=== PATIENT | male | born 1970 | race Caucasian/White ===

== ENCOUNTER 2018-02-07 16:42 | Emergency (ER) | payer OTHER ==
[~2018-02-07] VITALS: Ht 182.9 cm; Wt 157.0 kg
[~2018-02-07 16:42] MED LIST: ATOR10TA82 PO; WARF2.5T8 PO
[2018-02-07 16:49] VITALS: TEMP 36.5; Ht 182.9 cm; Wt 157.0 kg
[2018-02-07] MEDS ORDERED: KETOROLAC TROMETHAMINE 30 MG/ML VIAL IV STA (16:58)
[2018-02-07] MEDS ORDERED: MoRPHine SULFATE 10 MG/ML CARP/VIAL IV STA ×2 (16:58→17:55)
[2018-02-07] MEDS ORDERED: METF-384 PO (17:12)
[2018-02-07] MEDS ORDERED: OPTIRAY 320 IV PRN (17:15)
[2018-02-07 17:17] LABS: BASO % 0.1 %; BASO ABS # 0.01 K/uL (0-0.2); EOS % 0.7 %; EOS ABS # 0.05 K/uL (0-0.5); HEMATOCRIT 44.6 % (42-52); HEMOGLOBIN 15.6 g/dL (14.0-18.0); IG# 0.02 K/uL (0.00-0.02); LYMPH % 21.8 %; LYMPH ABS # 1.65 K/uL (1.2-3.4); MEAN CELL VOLUME 99.8 fL (80-100); MEAN CORPUSCULAR HEMOGLOBIN 34.9 pg (25-34); MEAN PLATELET VOLUME 9.9 fL (7.4-10.4); MONO % 7.3 %; MONO ABS # 0.55 K/uL (0.11-0.59); NEUT % 69.8 %; PLATELET COUNT 107 K/uL (130-400); RED CELL DISTRIBUTION WIDTH CV 13.6 % (11.5-14.5); RED CELL DISTRIBUTION WIDTH SD 49.6 fL (36.4-46.3); WHITE BLOOD COUNT 7.58 K/uL (4.8-10.8)
[2018-02-07 17:26] LABS: INR 2.5 (0.9-1.1)
[2018-02-07 17:27] LABS: ISTAT CREATININE 0.5 mg/dl (0.6-1.3); ISTAT IONIZED CALCIUM 1.08 mmol/l (1.12-1.32)
[2018-02-07] MEDS ORDERED: CARV3.122 PO (17:34)
[2018-02-07] MEDS ORDERED: GLIM1TAB2 PO (17:34)
[2018-02-07] MEDS ORDERED: VNTHFA/IN INH (17:34)
[2018-02-07] MEDS ORDERED: WARF-246 PO (17:34)
[2018-02-07] MEDS ORDERED: ACET-1256 PO (17:34)
[2018-02-07] MEDS ORDERED: GABA-1219 PO (17:34)
[2018-02-07 17:35] LABS: ALBUMIN 2.7 gm/dl (3.4-5.0); CALCIUM 8.5 mg/dl (8.5-10.1); CREATININE 0.79 mg/dl (0.60-1.40)
[2018-02-07 17:37] LABS: TOTAL PROTEIN 7.9 gm/dl (6.4-8.2)
[2018-02-07] MEDS ORDERED: NovoLIN-R INSULIN PER UNIT CHARGE IV STA (17:58)
--- NOTE | 2018-02-07 17:58 | DIAGNOSTIC IMAGING REPORT ---
CT ABD/PELVIS IV CONTRAST ONLY CLINICAL HISTORY: Right back/flank pain COMPARISON STUDY: None. TECHNIQUE: Following the IV administration of 94 mL of Optiray-320, CT scan of the abdomen and pelvis was performed from the lung bases to the proximal femurs. Images are reviewed in the axial, sagittal, and coronal planes. IV contrast was administered without complication. A dose lowering technique was utilized adhering to the principles of ALARA. CT DOSE: FINDINGS: Lower chest: The heart is normal in size and configuration, without pericardial effusion. The lung bases and pleural spaces are clear. Liver: There is hepatic steatosis. No focal masses are visualized. Gallbladder: Unremarkable. Spleen: The spleen is mildly enlarged measuring 13 cm Pancreas: Unremarkable. Adrenal glands: Unremarkable. Kidneys: There is symmetric renal cortical enhancement. The kidneys are normal in size without hydronephrosis. Bowel: There are no transition zones to indicate bowel obstruction. The appendix appears normal. There is no acute diverticulitis. Peritoneum: There is no intraperitoneal free air or abdominal ascites. There is a small fat-containing umbilical hernia Vasculature: The abdominal aorta is normal in course and caliber. There is indwelling IVC filter Adenopathy: Iliac chain lymph nodes are the upper limits of normal in size. Pelvic viscera: The bladder, and pelvic viscera are unremarkable. Skeletal structures: No destructive osseous lesions are seen. IMPRESSION: 1. Hepatic steatosis 2. Mild splenomegaly 3. No evidence of bowel obstruction. No evidence of free air 4. No evidence of acute appendicitis. No evidence of acute diverticulitis. Electronically signed by: Joshua Tapia M.D. 02/07/2018 5:57 PM Dictated Date/Time: 02/07/2018 5:53 PM
--- NOTE | 2018-02-07 18:00 | DIAGNOSTIC IMAGING REPORT ---
CT LUMBAR SPINE WITHOUT CT DOSE: 2235.03 mGy.cm CLINICAL HISTORY: Low back pain TECHNIQUE: Helical images were acquired in transverse plane. Reformatted sagittal and coronal images were reviewed. A dose lowering technique was utilized adhering to the principles of ALARA. CONTRAST: No contrast was administered COMPARISON STUDY: None. FINDINGS: L1-2 level: There is no evidence of significant disc bulge or focal herniation. There is no evidence of spinal or foraminal stenosis. L2-3 level: There is no evidence of significant disc bulge or focal herniation. There is no evidence of spinal or foraminal stenosis. L3-4 level: There is no evidence of significant disc bulge or focal herniation. There is no evidence of spinal or foraminal stenosis. L4-5 level: There is no evidence of significant disc bulge or focal herniation. There is no evidence of spinal or foraminal stenosis. L5-S1 level: There is no evidence of significant disc bulge or focal herniation. There is no evidence of spinal or foraminal stenosis. No fractures or subluxations are visualized. IMPRESSION: Unremarkable CT scan of the lumbar spine. Electronically signed by: Joshua Tapia M.D. 02/07/2018 5:59 PM Dictated Date/Time: 02/07/2018 5:57 PM
[2018-02-07] MEDS ORDERED: MoRPHine SULFATE 4 MG/ML 1 ML CARP\\VIAL ONE (19:23)
[2018-02-07] MEDS ORDERED: NURSING VERBAL MED ORDER ONE (19:30)
[2018-02-07] MEDS ORDERED: OXYCODONE IR HOME PACK PO ONE (19:45)
[2018-02-07 19:51] VITALS: BP 136/81; PULSE 80; O2SAT 98
--- NOTE | 2018-02-07 21:27 | EMERGENCY ROOM VISIT NOTE ---
History Report prepared by Sabine: Luna Nichole Under the Supervision of: Dr. Jasvir Fitzpatrick D.O. First contact with patient: 16:51 Chief Complaint: BACK PAIN Stated Complaint: BAD PAIN IN LOWER RT BACK History of Present Illness The patient is a 47 year old male who presents to the Emergency Room with complaints of persistent back pain for two days. He describes the pain as throbbing. He currently rates his pain a 6/10 in severity. He notes that lying down worsens his pain. Twisting turning and bending makes the pain worse. It radiates along his right lower back to his right flank. No exacerbating or remitting factors. He notes his pain is also worsened when he moves his left knee out to the side. He reports left hip pain for two years. He notes his pain initiates in his left groin and radiates to his left hip and his back. He notes the back pain is new relative to the groin and hip pain that has been ongoing for two years. He follows up with an orthopedic doctor in [place]. He was diagnosed with a left necrotic hip and was expected to have surgery, though he has a blood clotting disorder. One week prior to surgery he developed a PE. He has since been on Coumadin and has an IVC filter. He never received the surgery due to the clotting disorder. He has been non-weight bearing since his PE. Per , the patient's Coumadin levels have been lower than normal for about a month and a half. His last MRI was May 2017 at [facility]. Pt denies headache , change in vision, fevers, chest pain, cough, runny nose, nausea, vomiting, diarrhea, or pain with urination. He denies any numbness or weakness in the legs. Able to urinate and move his bowels without difficulty. Source of History: patient Onset: two days Position: back Symptom Intensity: 6/10 Timing: other (persistent) Modifying Factors (Worsening): breathing, other (lying down and rotating his left hip outward) Associated Symptoms: No fevers, No headache, No cough, No chest pain, No nausea, No vomiting, No diarrhea, No urinary symptoms (pain with urination), No weakness, No numbness Note: He notes left groin and left hip pain. He denies any change in vision or runny nose. Review of Systems See HPI for pertinent positives & negatives. A total of 10 systems reviewed and were otherwise negative. Past Medical & Surgical Medical Problems: (1) Palpitations (2) Shoulder pain, right Family History Diabetes mellitus Heart disease Social History Smoking Status: Current Every Day Smoker Alcohol Use: occasionally Drug Use: none Marital Status: Housing Status: lives with family Occupation Status: employed Current/Historical Medications Scheduled Carvedilol (Coreg), 3.125 MG PO BID Gabapentin (Gabapentin), 300 MG PO TID Glimepiride (Glimepiride), 1 MG PO DAILY Metformin Hcl (Glucophage), 1,000 MG PO BID Warfarin Sodium (Warfarin Sodium), 2.5 MG PO DAILY Scheduled PRN Acetaminophen (Tylenol), 1,000 MG PO Q6H PRN for Pain or Fever Albuterol Hfa (Ventolin Hfa), 2 PUFFS INH Q4-6HRS PRN for Shortness of Breath Allergies Coded Allergies: No Known Allergies (Unverified , 11/21/15) Physical Exam Vital Signs Date Time Temp Pulse Resp B/P (MAP) Pulse Ox O2 Delivery O2 Flow Rate FiO2 02/07/18 19:51 80 16 136/81 98 02/07/18 18:04 77 16 171/113 97 Room Air 02/07/18 16:49 36.5 95 20 166/123 97 Room Air Physical Exam GENERAL: Sitting up in bed, alert, well appearing, well nourished, no distress, non-toxic. Obese. EYE EXAM: normal conjunctiva. OROPHARYNX: no exudate, no erythema, lips, buccal mucosa, and tongue normal and mucous membranes are moist NECK: supple, no nuchal rigidity, no adenopathy, non-tender LUNGS: Clear to auscultation. Normal chest wall mechanics HEART: no murmurs, S1 normal and S2 normal ABDOMEN: abdomen soft, non-tender, normo-active bowel sounds, no masses, no rebound or guarding. BACK: Acute reproducible tenderness in right lower lumbar paraspinal region tracking out to left flank. SKIN: no rashes and no bruising UPPER EXTREMITIES: upper extremities are grossly normal. LOWER EXTREMITIES: Faint pitting edema in bilateral. Flexion and extension of hip, knee, ankle, and EHL 5/5 bilaterally. Gross sensations intact. NEURO EXAM: Normal sensorium, cranial nerves II-XII grossly intact, normal speech, no weakness of arms. Medical Decision & Procedures ER Provider Diagnostic Interpretation: Radiology results as stated below per my review and the radiologist's interpretation: CT ABD/PELVIS IV CONTRAST ONLY CLINICAL HISTORY: Right back/flank pain COMPARISON STUDY: None. TECHNIQUE: Following the IV administration of 94 mL of Optiray-320, CT scan of the abdomen and pelvis was performed from the lung bases to the proximal femurs. Images are reviewed in the axial, sagittal, and coronal planes. IV contrast was administered without complication. A dose lowering technique was utilized adhering to the principles of ALARA. CT DOSE: FINDINGS: Lower chest: The heart is normal in size and configuration, without pericardial effusion. The lung bases and pleural spaces are clear. Liver: There is hepatic steatosis. No focal masses are visualized. Gallbladder: Unremarkable. Spleen: The spleen is mildly enlarged measuring 13 cm Pancreas: Unremarkable. Adrenal glands: Unremarkable. Kidneys: There is symmetric renal cortical enhancement. The kidneys are normal in size without hydronephrosis. Bowel: There are no transition zones to indicate bowel obstruction. The appendix appears normal. There is no acute diverticulitis. Peritoneum: There is no intraperitoneal free air or abdominal ascites. There is a small fat-containing umbilical hernia Vasculature: The abdominal aorta is normal in course and caliber. There is indwelling IVC filter Adenopathy: Iliac chain lymph nodes are the upper limits of normal in size. Pelvic viscera: The bladder, and pelvic viscera are unremarkable. Skeletal structures: No destructive osseous lesions are seen. IMPRESSION: 1. Hepatic steatosis 2. Mild splenomegaly 3. No evidence of bowel obstruction. No evidence of free air 4. No evidence of acute appendicitis. No evidence of acute diverticulitis. Electronically signed by: Joshua Tapia M.D. 02/07/2018 5:57 PM Dictated Date/Time: 02/07/2018 5:[address] LUMBAR SPINE WITHOUT CT DOSE: 2235.03 mGy.cm CLINICAL HISTORY: Low back pain TECHNIQUE: Helical images were acquired in transverse plane. Reformatted sagittal and coronal images were reviewed. A dose lowering technique was utilized adhering to the principles of ALARA. CONTRAST: No contrast was administered COMPARISON STUDY: None. FINDINGS: L1-2 level: There is no evidence of significant disc bulge or focal herniation. There is no evidence of spinal or foraminal stenosis. L2-3 level: There is no evidence of significant disc bulge or focal herniation. There is no evidence of spinal or foraminal stenosis. L3-4 level: There is no evidence of significant disc bulge or focal herniation. There is no evidence of spinal or foraminal stenosis. L4-5 level: There is no evidence of significant disc bulge or focal herniation. There is no evidence of spinal or foraminal stenosis. L5-S1 level: There is no evidence of significant disc bulge or focal herniation. There is no evidence of spinal or foraminal stenosis. No fractures or subluxations are visualized. IMPRESSION: Unremarkable CT scan of the lumbar spine. Electronically signed by: Joshua Tapia M.D. 02/07/2018 5:59 PM Dictated Date/Time: 02/07/2018 5:57 PM Laboratory Results 02/07/18 17:08 Red Blood Count 4.47, Mean Corpuscular Volume 99.8, Mean Corpuscular Hemoglobin 34.9, Mean Corpuscular Hemoglobin Concent 35.0, Mean Platelet Volume 9.9, Neutrophils (%) (Auto) 69.8, Lymphocytes (%) (Auto) 21.8, Monocytes (%) (Auto) 7.3, Eosinophils (%) (Auto) 0.7, Basophils (%) (Auto) 0.1, Neutrophils # (Auto) 5.30, Lymphocytes # (Auto) 1.65, Monocytes # (Auto) 0.55, Eosinophils # (Auto) 0.05, Basophils # (Auto) 0.01 02/07/18 17:08 Test 02/07/18 17:08 02/07/18 17:13 02/07/18 18:35 White Blood Count 7.58 K/uL (4.8-10.8) Red Blood Count 4.47 M/uL (4.7-6.1) Hemoglobin 15.6 g/dL (14.0-18.0) Hematocrit 44.6 % (42-52) Mean Corpuscular Volume 99.8 fL (80-100) Mean Corpuscular Hemoglobin 34.9 pg (25-34) Mean Corpuscular Hemoglobin Concent 35.0 g/dl (32-36) Platelet Count 107 K/uL (130-400) Mean Platelet Volume 9.9 fL (7.4-10.4) Neutrophils (%) (Auto) 69.8 % Lymphocytes (%) (Auto) 21.8 % Monocytes (%) (Auto) 7.3 % Eosinophils (%) (Auto) 0.7 % Basophils (%) (Auto) 0.1 % Neutrophils # (Auto) 5.30 K/uL (1.4-6.5) Lymphocytes # (Auto) 1.65 K/uL (1.2-3.4) Monocytes # (Auto) 0.55 K/uL (0.11-0.59) Eosinophils # (Auto) 0.05 K/uL (0-0.5) Basophils # (Auto) 0.01 K/uL (0-0.2) RDW Standard Deviation 49.6 fL (36.4-46.3) RDW Coefficient of Variation 13.6 % (11.5-14.5) Immature Granulocyte % (Auto) 0.3 % Immature Granulocyte # (Auto) 0.02 K/uL (0.00-0.02) Prothrombin Time 26.1 SECONDS (9.0-12.0) Prothromb Time International Ratio 2.5 (0.9-1.1) Est Creatinine Clear Calc Drug Dose 182.7 ml/min Estimated GFR () 125.7 Estimated GFR (Non- 108.4 BUN/Creatinine Ratio 6.4 (10-20) Calcium Level 8.5 mg/dl (8.5-10.1) Total Bilirubin 0.9 mg/dl (0.2-1) Direct Bilirubin 0.3 mg/dl (0-0.2) Aspartate Amino Transf (AST/SGOT) 71 U/L (15-37) Alanine Aminotransferase (ALT/SGPT) 29 U/L (12-78) Alkaline Phosphatase 155 U/L (45-117) Total Protein 7.9 gm/dl (6.4-8.2) Albumin 2.7 gm/dl (3.4-5.0) Lipase 122 U/L (73-393) Beta-Hydroxybutyric Acid 0.55 mg/dL (0.2-2.81) Bedside Hemoglobin 16.3 g/dl (14.0-18.0) Bedside Hematocrit 48 % (42-52) Bedside Sodium 137 mEq/L (135-144) Bedside Potassium 4.0 mEq/L (3.3-5.0) Bedside Chloride 96 mEq/L (101-112) Bedside Total CO2 27 mEq/l (24-31) Anion Gap 19.0 mmol/L (16-25) Bedside Blood Urea Nitrogen 4 mg/dl (7-18) Bedside Creatinine 0.5 mg/dl (0.6-1.3) Bedside Glucose (other) 347 mg/dl (70-99) Bedside Ionized Calcium (Nirmala) 1.08 mmol/l (1.12-1.32) Urine Color YELLOW Urine Appearance CLEAR (CLEAR) Urine pH 6.5 (4.5-7.5) Urine Specific [place] > 1.045 (1.000-1.030) Urine Protein NEG (NEG) Urine Glucose (UA) 3+ (NEG) Urine Ketones TRACE (NEG) Urine Occult Blood NEG (NEG) Urine Nitrite NEG (NEG) Urine Bilirubin NEG (NEG) Urine Urobilinogen NEG (NEG) Urine Leukocyte Esterase NEG (NEG) Urine WBC (Auto) 0 /hpf (0-5) Urine RBC (Auto) 0-4 /hpf (0-4) Urine Hyaline Casts (Auto) 0 /lpf (0-5) Urine Epithelial Cells (Auto) 5-10 /lpf (0-5) Urine Bacteria (Auto) NEG (NEG) Laboratory results per my review. Medications Administered Medications (Trade) Dose Ordered Sig/Fito Route Start Time Stop Time Status Last Admin Dose Admin Morphine Sulfate (MoRPHine SULFATE INJ) 6 mg NOW STAT IV 02/07/18 16:58 02/07/18 17:00 DC 02/07/18 17:09 6 MG Ketorolac Tromethamine (Toradol Inj) 30 mg NOW STAT IV 02/07/18 16:58 02/07/18 17:00 DC 02/07/18 17:09 30 MG Morphine Sulfate (MoRPHine SULFATE INJ) 6 mg NOW STAT IV 02/07/18 17:55 02/07/18 17:57 DC 02/07/18 18:10 6 MG Insulin Human Regular (novoLIN-R U-100 PER UNIT) 3 units NOW STAT IV 02/07/18 17:58 02/07/18 17:59 DC 02/07/18 18:29 3 UNITS Morphine Sulfate (MoRPHine SULFATE INJ) 4 mg STK-MED ONCE .ROUTE 02/07/18 19:23 02/07/18 19:24 DC 02/07/18 19:25 4 MG ED Course ED COURSE: Vital signs were reviewed and showed hypertensive. The patients medical record was reviewed The above diagnostic studies were performed and reviewed. ED treatments and interventions as stated above. 1651: The patient was evaluated in room A10. A complete history and physical examination was performed. 1657: Ordered Toradol 30 mg IV and Morphine Sulfate 6 mg IV 1754: Ordered Morphine Sulfate 6 mg IV 1757: Ordered Insulin Human Regular 3 units IV 1815: I reassessed the patient at this time. I updated the patient. 1922: Ordered Morphine Sulfate 4 mg IV 1941: Upon reevaluation, the patient is feeling better. I discussed my findings with the patient and he understands and agrees with the treatment plan. Based on the patients age, coexisting illnesses, exam and lab findings the decision to treat as an outpatient was made. The patient remained stable while under my care. The patient appeared well at the time of discharge. 1944: Ordered Oxycodone HCl 1 homepack PO Medical Decision Differential diagnoses includes but is not limited to lumbar radiculopathy, muscle strain, facture, cauda equina, mass, and disc herniation. Patient is a 47-year-old male who presents the ER for right lower back/flank pain which started 2 days ago. He complains of chronic left hip and groin pain which has been unchanged for the past several years. He has followed up with orthopedics for this. Right lower back is new. Patient is neurologically intact. CBC along with BMP and bilirubin was unremarkable. AST slightly elevated. Lipase normal. No gap. BSG was slightly elevated at 347. Patient was given 3 units of IV insulin. CT of the abdomen and pelvis was unremarkable along with CT lumbar spine. He was asymptomatic as he was observed for over an hour which is the duration of the IV insulin. INR was elevated at 2.5. UA was unremarkable. Patient was discharged with a small bottle of OxyIR. He was instructed to follow-up with his PCP and orthopedic doctor. He will need to follow-up for his elevated BSG and his pain. Updated patient and family at bedside. Discussed with Pt concerning signs and symptoms to watch out for. Pt was instructed to follow up with their PCP and discussed with the patient their option to return to the ED at anytime for persistent or worsening symptoms. The appropriate anticipatory guidance and out-patient management, including indications for return to the emergency department, were explained at length to the patient and understood. Medication Reconcilliation Current Medication List: was personally reviewed by me Blood Pressure Screening Patient's blood pressure: Elevated blood pressure Blood pressure disposition: Elevated BP felt to be situational Impression Primary Impression: Back pain Additional Impression: Hyperglycemia Scribe Attestation The scribe's documentation has been prepared under my direction and personally reviewed by me in its entirety. I confirm that the note above accurately reflects all work, treatment, procedures, and medical decision making performed by me. Departure Information Dispostion Home / Self-Care Referrals No Doctor, Assigned (PCP) Elmer Herrera M.D. Forms HOME CARE DOCUMENTATION FORM, IMPORTANT VISIT INFORMATION Patient Instructions Back Pain - [facility], My [facility] Additional Instructions Please follow up with your primary care doctor with in the next 24 hours. Any worsening of your symptoms, please return to the ED immediately. This includes any fevers greater than 100.4, worsening pain, chest pain, shortness breath, persistent nausea, vomiting, unable to eat or drink, or any other concerning signs or symptoms from your standpoint. You were given medications during this visit that will inhibit your ability to drive, operate machinery and work. Please do NOT drive, operate machinery, drink alcohol or work for the next 12hrs. Please take Tylenol or Motrin as needed for pain. Please follow-up with your PCP in regards to her elevated blood sugars. Problem Qualifiers Primary Impression: Back pain Back pain location: low back pain Chronicity: acute Back pain laterality: right Sciatica presence: without sciatica Qualified Codes: M54.5 - Low back pain
== END 2018-02-07 19:51 | disposition home or self-care (01) ==
LOC: C.EDB 16:43 → C.EDA 19:51
DX: M54.5 Low back pain (principal); R73.9 Hyperglycemia, unspecified; M87.352 Other secondary osteonecrosis, left femur; D68.9 Coagulation defect, unspecified; Z86.711 Personal history of pulmonary embolism; F17.200 Nicotine dependence, unspecified, uncomplicated; Z79.01 Long term (current) use of anticoagulants; Z79.84 Long term (current) use of oral hypoglycemic drugs; Z83.3 Family history of diabetes mellitus; Z82.49 Family history of ischemic heart disease and other diseases of the circulatory system

== ENCOUNTER 2020-08-31 18:32 | Inpatient (IN) ==
--- OUTSIDE RECORDS SUMMARY | 2020-08-31 18:35 | External Medical Summary | Continuity of Care Document ---
:1970 Author Name Ashlee Isaac Address Unavailable Unavailable , Care Team Providers Name Role Phone NonMNPG M.D. Unavailable [email or web address] [email or web address], [email or web address] Unavailable Unavailable Problems Active medical history not documented Allergies and Adverse Reactions Allergy history not documented Medications Medications not documented Procedures Procedures not documented Immunizations Immunizations not documented Plan of Treatment Planned Observations Planned Goals not documented Results No Known Results Results not documented
--- OUTSIDE RECORDS SUMMARY | 2020-08-31 18:35 | External Medical Summary | Continuity of Care Document ---
:1970 Author Name Ashlee Isaac Address Unavailable Unavailable , Care Team Providers Name Role Phone NonMNPG M.D. Unavailable [email or web address] PCP, UNKNOWN Unavailable Unavailable Problems Active medical history not documented Allergies and Adverse Reactions Allergy history not documented Medications Medications not documented Procedures Procedures not documented Immunizations Immunizations not documented Plan of Treatment Planned Observations Planned Goals not documented Results No Known Results Results not documented
[2020-08-31] MEDS ORDERED: MULTI-VITAMIN INFUSION 10 ML, THIAMINE HCL 100 MG, FOLIC ACID 1 MG in SODIUM CHLORIDE 0... IV ONE (19:00)
--- NOTE | 2020-08-31 19:05 | Emergency Department Note ---
Impression & Plan Alcohol withdrawal syndrome, Thrombocytopenia, Subtherapeutic international normalized ratio (INR) ED Provider Note Provider: Peter Avalos MD DATE OF SERVICE:08/31/2020 CHIEF COMPLAINT: Alcohol withdrawal, lab abnormalities HISTORY OF PRESENT ILLNESS: Patient is a 49-year-old gentleman with a history of hypertension, DVT, PE on Coumadin, coagulation abnormality, dyslipidemia, left hip replacement, and alcohol abuse presenting here today with concerns for alcohol withdrawal developing and laboratory abnormalities. Patient states that he has a long history of alcohol abuse normally between 10 and 20 beers a day. Last drink approximately 1 AM early this morning. Patient states he is not had hallucinations or seizures before but has had some mild to moderate withdrawal symptoms. Patient stated not stop drinking. Patient has been following with outpatient providers for various things. A significant medical history on Coumadin for coagulopathy and his INR was recently low. States he is had some small falls and bumps and has some small resolving contusions on his right chest and upper abdomen but denies any significant pain here. Denies falling and striking his head. Patient states he felt a bit warm and flushed earlier but denies any again hallucinations or seizure-like activity. Patient states he has had some stiffness around his left hip that he had previously replaced back in December due to necrosis he reports. Patient denies IV drug use or history of a bit headaches. Patient denies a history of inpatient rehab. Patient states he talked to his [facility] doctors today who reviewed his blood work and referred him here for likely inpatient detox. Patient is willing for inpatient detox. Patient denies taking any Librium or benzodiazepines today. Patient states he recently saw neurology yesterday due to chronic gait abnormality issues. Patient reports there told his platelets, ammonia level, and INR were off today. REVIEW OF SYSTEMS: A total of 10 review of systems was obtained and negative except as stated above in the HPI. PAST MEDICAL HISTORY: As noted above MEDICATIONS: Reviewed medication list. SOCIAL HISTORY: History of alcohol abuse, smokes marijuana, denies other IV drug use or other illicit drug use PHYSICAL EXAM: GENERAL: alert and oriented in no acute distress on stretcher Head: normocephalic and atraumatic EYES: No injection, discharge or icterus. PERRL NECK: Trachea midline. Supple. ENT: Mucous membranes pink and moist. LUNGS: Airway patent. No retractions. Breath sounds clear with good air entry bilaterally. HEART: Regular rate and rhythm. No chest wall tenderness although there is a almost fully healed 4 cm area of contusion on the right lower chest. No crepitus. ABDOMEN: Soft and non-tender, without guarding or rebound. There is a approximately 6 mm area of contusion in the epigastrium without significant tenderness. SKIN: Acyanotic, warm, dry, without rashes EXTREMITIES: Without swelling, tenderness or deformity NEUROLOGICAL: No focal deficits. No aphasia. No facial droop or slurred speech. Normal strength and tone in the extremities. Sensation to gross touch normal in the extremities EKG: Normal sinus rhythm with occasional PAC rate of 66 bpm. No PVC. No acute ST segment elevation or depression. QTC 427. Normal QRS. CONTINUOUS CARDIAC MONITORING: was ordered and showed a heart rate of 74 bpm in normal sinus rhythm GCS 15. Patient's laboratory studies and imaging reviewed. Differential includes Infection, dehydration, metabolic abnormality, hypo/hyperglycemia, electrolyte disturbance, anemia, hypoxia, cardiac sources, intracerebral event, toxicologic, neurologic, as well as other pathologies. IMPRESSION/MEDICAL DECISION MAKING: Patient presents concern for alcohol withdrawal. Medically does not have significant history of delirium tremens/seizures per report. Significant occult history. History of liver issues and anticoagulated to history of VTE and coagulopathy. Patient is now with some easy bruising noted and wishing to detox from alcohol. Not in walker withdrawal at this point. Repeat laboratories were sent today. Imaging of the head was completed given that he is had some fall and anticoagulated well as CT the abdomen pelvis. No significant abdominal tenderness and I doubt any acute significant traumatic injury. No significant focal deficits or asterisks appreciated. Does not seem significant confused I doubt hepatic encephalopathy. Hepatitis panel was ordered. Denies IV drug abuse. Does some concerns about ability to detox at home given his significant alcohol history. Does have history of liver dysfunction and the thrombocytopenia today seems consistent with that. No significant transaminitis. Minimal anemia. INR is subtherapeutic however given the thrombocytopenia and his already increased dose of warfarin will defer any furth er acute anticoagulation at this point to the hospitalist team. Ammonia just above normal and does not appear to be again suffering from hepatic encephalopathy. States he has many bowel movements at home and does not use the lactulose but does use the rifaximin. Alcohol is undetectable. Negative hepatitis B antigen and hepatitis C antibody. No signs of urine infection. TSH within normal limits. Reevaluated the patient who is feeling a bit anxious and somewhat tremulous. Hypertensive but not that significantly tachycardic. Not having loose Nations. Discussed with him options of trying oral outpatient treatment plan with Librium. Patient had significant concerns with this. Discussed with his and his sister per his request via phone. Patient states he does not think he can do this and does not believe that he is safe to go home at this point and that he would relapse or have severe withdrawal. Discussed with option of further observation here in the hospital. He is in agreement with this and the hospitalist was contacted. Given some IV Valium with improvement of his anxiety. Did receive IV folate and thiamine. DIAGNOSIS: Alcohol withdrawal, thrombocytopenia DISPOSITION: Hospitalist will evaluate Patient was agreeable with this plan. Past Med/Surg History Social History Smoking Status: Current every day smoker Hx Substance Use: No Feels Safe at Home: Yes Allergies Allergies Allergy/AdvReac Type Severity Reaction Status Date / Time No Known Allergies Allergy Unverified 08/31/20 22:29 Home Meds Home Medications Medication Instructions Recorded Confirmed acyclovir 200 mg PO UD 08/31/20 08/31/20 carvedilol [Coreg] 3.125 mg PO BID 08/31/20 08/31/20 chlordiazepoxide HCl 25 mg PO Q4 PRN 08/31/20 08/31/20 cholecalciferol (vitamin D3) 125 mcg PO DAILY 08/31/20 08/31/20 [Vitamin D3] citalopram 20 mg PO DAILY 08/31/20 08/31/20 cyanocobalamin (vitamin B-12) 0 mcg PO DAILY 08/31/20 08/31/20 [Vitamin B-12] folic acid 1 mg PO DAILY 08/31/20 08/31/20 hydroxyzine HCl 10 mg PO DAILY PRN 08/31/20 08/31/20 metformin 1,000 mg PO BID 08/31/20 08/31/20 pantoprazole 40 mg PO DAILY 08/31/20 08/31/20 pregabalin 75 mg PO BID 08/31/20 08/31/20 rifaximin [Xifaxan] 550 mg PO BID 08/31/20 08/31/20 thiamine HCl (vitamin B1) [Vitamin 100 mg PO DAILY 08/31/20 08/31/20 B-1] trazodone 50 mg PO HS PRN 08/31/20 08/31/20 warfarin 2 mg PO DAILY 08/31/20 08/31/20 Results & Data (ED) Vital Signs Vital Signs - 24 hr 08/31/20 18:37 08/31/20 18:59 08/31/20 19:25 Temperature 36.8 C Temperature Source Oral Pulse Rate 69 59 L 61 Pulse Rate [Right Finger] Pulse Rate from SpO2 Sensor 60 63 Respiratory Rate 18 22 23 Respiratory Depth Normal Blood Pressure 172/84 H 142/89 H 152/90 H Blood Pressure [Left Arm] Blood Pressure Mean 113 108 123 Blood Pressure Mean [Left Arm] Blood Pressure Position Sitting Blood Pressure Position [Left Arm] Pulse Oximetry 96 96 98 Oxygen Delivery Method Room Air Room Air Room Air Sepsis Recent Fever Within 48 Hours No Sepsis New/Unexplained Change in Mental Status No Sepsis Action Taken by Nursing No Action Required 08/31/20 19:30 08/31/20 20:17 08/31/20 21:00 Temperature Temperature Source Pulse Rate 63 61 Pulse Rate [Right Finger] 60 Pulse Rate from SpO2 Sensor 65 62 Respiratory Rate 17 20 22 Respiratory Depth Blood Pressure 140/79 131/80 Blood Pressure [Left Arm] 168/95 H Blood Pressure Mean 96 86 Blood Pressure Mean [Left Arm] 119 Blood Pressure Position Blood Pressure Position [Left Arm] Sitting Pulse Oximetry 98 98 97 Oxygen Delivery Method Room Air Room Air Room Air Sepsis Recent Fever Within 48 Hours Sepsis New/Unexplained Change in Mental Status Sepsis Action Taken by Nursing 08/31/20 21:17 08/31/20 21:30 08/31/20 22:00 Temperature Temperature Source Pulse Rate 64 67 58 L Pulse Rate [Right Finger] Pulse Rate from SpO2 Sensor 64 64 62 Respiratory Rate 21 17 24 Respiratory Depth Blood Pressure 149/93 H 153/91 H 134/79 Blood Pressure [Left Arm] Blood Pressure Mean 108 106 88 Blood Pressure Mean [Left Arm] Blood Pressure Position Blood Pressure Position [Left Arm] Pulse Oximetry 98 98 96 Oxygen Delivery Method Room Air Room Air Room Air Sepsis Recent Fever Within 48 Hours Sepsis New/Unexplained Change in Mental Status Sepsis Action Taken by Nursing 08/31/20 22:30 08/31/20 23:00 08/31/20 23:30 Temperature Temperature Source Pulse Rate 64 55 L 75 Pulse Rate [Right Finger] Pulse Rate from SpO2 Sensor 62 55 L 62 Respiratory Rate 15 18 20 Respiratory Depth Blood Pressure 154/93 H 158/90 H 168/98 H Blood Pressure [Left Arm] Blood Pressure Mean 111 100 110 Blood Pressure Mean [Left Arm] Blood Pressure Position Blood Pressure Position [Left Arm] Pulse Oximetry 98 98 97 Oxygen Delivery Method Room Air Room Air Room Air Sepsis Recent Fever Within 48 Hours Sepsis New/Unexplained Change in Mental Status Sepsis Action Taken by Nursing Laboratory Data Result diagrams: 08/31/20 19:15 08/31/20 19:15 Lab Results 08/31/20 08/31/20 08/31/20 Range/Units 19:15 19:15 19:15 WBC 5.00 (4.8-10.8) K/uL RBC 4.40 L (4.7-6.1) M/uL Hgb 13.5 L (14.0-18.0) g/dL Hct 40.6 L (42-52) % MCV 92.3 (80-100) fL MCH 30.7 (25-34) pg MCHC 33.3 (32-36) g/dL RDW Std Deviation 57.5 H (36.4-46.3) fL RDW Coeff of Pk 17.0 H (11.5-14.5) % Plt Count 68 L (130-400) K/uL MPV 10.3 (7.4-10.4) fL Immature Gran % (Auto) 0.4 % Neut % (Auto) 76.6 % Lymph % (Auto) 12.2 % [place] % (Auto) 9.0 % Eos % (Auto) 1.6 % Baso % (Auto) 0.2 % Neut # (Auto) 3.83 (1.4-6.5) K/uL Lymph # (Auto) 0.61 L (1.2-3.4) K/uL [place] # (Auto) 0.45 (0.11-0.59) K/uL Eos # (Auto) 0.08 (0-0.5) K/uL Baso # (Auto) 0.01 (0-0.2) K/uL Immature Gran # (Auto) 0.02 (0.00-0.02) K/uL Platelet Estimate Decreased L (Normal) PT 15.7 H (9.0-12.0) Seconds INR 1.5 H (0.9-1.1) Sodium 138 (136-145) mmol/L Potassium 3.8 (3.5-5.1) mmol/L Chloride 106 (98-107) mmol/L Carbon Dioxide 24 (21-32) mmol/L Anion Gap 8.0 (3-11) BUN 11 (7-18) mg/dl Creatinine 0.65 (0.6-1.4) mg/dl Est Cr Clr Drug Dosing Not Reportable Est GFR ( Amer) 134.3 Est GFR (Non-Af Amer) 115.9 BUN/Creatinine Ratio 16.2 (10-20) Glucose 201 H (70-99) mg/dl Calcium 8.7 (8.5-10.1) mg/dl Phosphorus 2.4 L (2.5-4.9) mg/dl Magnesium 1.8 (1.8-2.4) mg/dl Total Bilirubin 0.9 (0.2-1) mg/dl AST 34 (15-37) U/L ALT 24 (12-78) U/L Alkaline Phosphatase 113 (45-117) U/L Ammonia (11-32) umol/L Troponin I < 0.015 (0-0.045) ng/ml Total Protein 6.9 (6.4-8.2) gm/dl Albumin 3.0 L (3.4-5.0) gm/dl Globulin 3.9 (2.5-4.0) gm/dl Albumin/Globulin Ratio 0.8 L (0.9-2) TSH 0.850 (0.300-4.500) uIu/ml Urine Color Urine Appearance (Clear) Urine pH (4.5-7.5) Ur Specific [place] (1.000-1.030) Urine Protein (Negative) Urine Glucose (UA) (Negative) Urine Ketones (Negative) Urine Blood (Negative) Urine Nitrite (Negative) Urine Bilirubin (Negative) Urine Urobilinogen (Negative) Ur Leukocyte Esterase (Negative) Ethyl Alcohol mg/dL (0-3) mg/dl Hep Bs Antigen (Neg) Hepatitis C Antibody (Neg) 08/31/20 08/31/20 08/31/20 Range/Units 19:15 19:15 19:15 WBC (4.8-10.8) K/uL RBC (4.7-6.1) M/uL Hgb (14.0-18.0) g/dL Hct (42-52) % MCV (80-100) fL MCH (25-34) pg MCHC (32-36) g/dL RDW Std Deviation (36.4-46.3) fL RDW Coeff of Pk (11.5-14.5) % Plt Count (130-400) K/uL MPV (7.4-10.4) fL Immature Gran % (Auto) % Neut % (Auto) % Lymph % (Auto) % [place] % (Auto) % Eos % (Auto) % Baso % (Auto) % Neut # (Auto) (1.4-6.5) K/uL Lymph # (Auto) (1.2-3.4) K/uL [place] # (Auto) (0.11-0.59) K/uL Eos # (Auto) (0-0.5) K/uL Baso # (Auto) (0-0.2) K/uL Immature Gran # (Auto) (0.00-0.02) K/uL Platelet Estimate (Normal) PT (9.0-12.0) Seconds INR (0.9-1.1) Sodium (136-145) mmol/L Potassium (3.5-5.1) mmol/L Chloride (98-107) mmol/L Carbon Dioxide (21-32) mmol/L Anion Gap (3-11) BUN (7-18) mg/dl Creatinine (0.6-1.4) mg/dl Est Cr Clr Drug Dosing Est GFR ( Amer) Est GFR (Non-Af Amer) BUN/Creatinine Ratio (10-20) Glucose (70-99) mg/dl Calcium (8.5-10.1) mg/dl Phosphorus (2.5-4.9) mg/dl Magnesium (1.8-2.4) mg/dl Total Bilirubin (0.2-1) mg/dl AST (15-37) U/L ALT (12-78) U/L Alkaline Phosphatase (45-117) U/L Ammonia 34.5 H (11-32) umol/L Troponin I (0-0.045) ng/ml Total Protein (6.4-8.2) gm/dl Albumin (3.4-5.0) gm/dl Globulin (2.5-4.0) gm/dl Albumin/Globulin Ratio (0.9-2) TSH (0.300-4.500) uIu/ml Urine Color Urine Appearance (Clear) Urine pH (4.5-7.5) Ur Specific [place] (1.000-1.030) Urine Protein (Negative) Urine Glucose (UA) (Negative) Urine Ketones (Negative) Urine Blood (Negative) Urine Nitrite (Negative) Urine Bilirubin (Negative) Urine Urobilinogen (Negative) Ur Leukocyte Esterase (Negative) Ethyl Alcohol mg/dL < 3.0 (0-3) mg/dl Hep Bs Antigen Neg (Neg) Hepatitis C Antibody Neg (Neg) 08/31/20 Range/Units 20:35 WBC (4.8-10.8) K/uL RBC (4.7-6.1) M/uL Hgb (14.0-18.0) g/dL Hct (42-52) % MCV (80-100) fL MCH (25-34) pg MCHC (32-36) g/dL RDW Std Deviation (36.4-46.3) fL RDW Coeff of Pk (11.5-14.5) % Plt Count (130-400) K/uL MPV (7.4-10.4) fL Immature Gran % (Auto) % Neut % (Auto) % Lymph % (Auto) % [place] % (Auto) % Eos % (Auto) % Baso % (Auto) % Neut # (Auto) (1.4-6.5) K/uL Lymph # (Auto) (1.2-3.4) K/uL [place] # (Auto) (0.11-0.59) K/uL Eos # (Auto) (0-0.5) K/uL Baso # (Auto) (0-0.2) K/uL Immature Gran # (Auto) (0.00-0.02) K/uL Platelet Estimate (Normal) PT (9.0-12.0) Seconds INR (0.9-1.1) Sodium (136-145) mmol/L Potassium (3.5-5.1) mmol/L Chloride (98-107) mmol/L Carbon Dioxide (21-32) mmol/L Anion Gap (3-11) BUN (7-18) mg/dl Creatinine (0.6-1.4) mg/dl Est Cr Clr Drug Dosing Est GFR ( Amer) Est GFR (Non-Af Amer) BUN/Creatinine Ratio (10-20) Glucose (70-99) mg/dl Calcium (8.5-10.1) mg/dl Phosphorus (2.5-4.9) mg/dl Magnesium (1.8-2.4) mg/dl Total Bilirubin (0.2-1) mg/dl AST (15-37) U/L ALT (12-78) U/L Alkaline Phosphatase (45-117) U/L Ammonia (11-32) umol/L Troponin I (0-0.045) ng/ml Total Protein (6.4-8.2) gm/dl Albumin (3.4-5.0) gm/dl Globulin (2.5-4.0) gm/dl Albumin/Globulin Ratio (0.9-2) TSH (0.300-4.500) uIu/ml Urine Color Dark Yellow Urine Appearance Clear (Clear) Urine pH 7.0 (4.5-7.5) Ur Specific [place] 1.021 (1.000-1.030) Urine Protein Negative (Negative) Urine Glucose (UA) 2+ H (Negative) Urine Ketones Negative (Negative) Urine Blood Negative (Negative) Urine Nitrite Negative (Negative) Urine Bilirubin Negative (Negative) Urine Urobilinogen Negative (Negative) Ur Leukocyte Esterase Negative (Negative) Ethyl Alcohol mg/dL (0-3) mg/dl Hep Bs Antigen (Neg) Hepatitis C Antibody (Neg) Administered Medications Discontinued Medications Diazepam (Diazepam 5 Mg/Ml Inj 10ml Vial) 5 mg IV NOW STA Stop: 08/31/20 21:31 Last Admin: 08/31/20 21:35 Dose: 5 mg Documented by: [id number] Multivitamins 10 ml/ Thiamine HCl 100 mg/ Folic Acid 1 mg/Sodium Chloride 1,011.2 mls @ 1,011.2 mls/hr IV .Q1H ONE Stop: 08/31/20 19:59 Last Infusion: 08/31/20 20:24 Dose: 0 mls/hr Documented by: [id number] Admin: 08/31/20 19:24 Dose: 1,011.2 mls/hr Documented by: [id number] Lorazepam (Lorazepam 2 Mg/4 Ml Vial) Confirm Administered Dose 2 mg .ROUTE .STK- MED ONE Stop: 08/31/20 23:34 Last Increment: 08/31/20 23:37 Dose: 1 mg Documented by: [id number] Discharge Plan Visit Data Chief Complaint: Alcohol Withdrawal Stated Complaint: DETOX, ABNORMAL LABS ED Provider: Peter Avalos Discharge Problem: Alcohol withdrawal syndrome, Thrombocytopenia, Subtherapeutic international normalized ratio (INR) Patient Disposition: Being Evaluated by Hospitalist Forms Stand Alone Forms: [facility] Prescriptions Prescriptions: No Action trazodone 50 mg tablet 50 mg PO HS PRN (Reason: Sleep) RF: 0 cyanocobalamin (vitamin B-12) [Vitamin B-12] 1,000 mcg Tablet 0 mcg PO DAILY RF: 0 thiamine HCl (vitamin B1) [Vitamin B-1] 100 mg Tablet 100 mg PO DAILY RF: 0 carvedilol [Coreg] 3.125 mg tablet 3.125 mg PO BID RF: 0 citalopram 20 mg tablet 20 mg PO DAILY RF: 0 chlordiazepoxide HCl 25 mg capsule 25 mg PO Q4 PRN (Reason: Anxiety) RF: 0 pantoprazole 40 mg Tablet,Delayed Release (Dr/Ec) 40 mg PO DAILY RF: 0 metformin 1,000 mg tablet 1,000 mg PO BID RF: 0 warfarin 2 mg tablet 2 mg PO DAILY RF: 0 folic acid 1 mg tablet 1 mg PO DAILY RF: 0 acyclovir 200 mg Capsule 200 mg PO UD RF: 0 hydroxyzine HCl 10 mg tablet 10 mg PO DAILY PRN (Reason: Anxiety) RF: 0 pregabalin 75 mg capsule 75 mg PO BID RF: 0 cholecalciferol (vitamin D3) [Vitamin D3] 125 mcg (5,000 unit) Tablet 125 mcg PO DAILY RF: 0 Xifaxan 550 mg tablet 550 mg PO BID RF: 0 Referrals Referrals: Izzy Delgadillo MD [Primary Care Provider] -
--- NOTE | 2020-08-31 19:35 | XRay Report ---
XR chest 1V portable CLINICAL HISTORY: weakness COMPARISON STUDY: 11/21/2015 FINDINGS: The cardiac and mediastinal contours are normal. There is no evidence of focal pulmonary co nsolidation. There is no evidence of failure. No pleural effusions are visualized.[ IMPRESSION: No active disease in the chest. ACT 112: Negative or not required by law. Electronically signed by: Joshua Tapia M.D. 08/31/2020 7:33 PM
[2020-08-31 19:42] LABS: INR 1.5 (0.9-1.1); Prothrombin Time 15.7 Seconds (9.0-12.0)
[2020-08-31 19:49] LABS: Alanine Aminotransferase 24 U/L (12-78); Aspartate Aminotransferase 34 U/L (15-37); BUN Creatinine Ratio 16.2 (10-20); Blood Urea Nitrogen 11 mg/dl (7-18); Calcium 8.7 mg/dl (8.5-10.1); Carbon Dioxide 24 mmol/L (21-32); Chloride 106 mmol/L (98-107); Est GFR (African American) 134.3; Est GFR (Non-African American) 115.9; Glucose 201 mg/dl (70-99); Magnesium 1.8 mg/dl (1.8-2.4); Potassium 3.8 mmol/L (3.5-5.1); Sodium 138 mmol/L (136-145)
[2020-08-31 19:52] LABS: Hematocrit (blood only) 40.6 % (42-52); Hemoglobin 13.5 g/dL (14.0-18.0); Mean Corpuscular Hemoglobin 30.7 pg (25-34); Mean Corpuscular Hgb Conc 33.3 g/dL (32-36); Mean Corpuscular Volume 92.3 fL (80-100); Mean Platelet Volume 10.3 fL (7.4-10.4); Platelet Count 68 K/uL (130-400); RDW Standard Deviation 57.5 fL (36.4-46.3)
[2020-08-31 19:53] LABS: Basophils # (auto) 0.01 K/uL (0-0.2); Basophils % (auto) 0.2 %; Eosinophils # (auto) 0.08 K/uL (0-0.5); Eosinophils % (auto) 1.6 %; Immature Granulocytes # (auto) 0.02 K/uL (0.00-0.02); Immature Granulocytes % (auto) 0.4 %; Lymphocytes # (auto) 0.61 K/uL (1.2-3.4); Lymphocytes % (auto) 12.2 %; Monocytes # (auto) 0.45 K/uL (0.11-0.59); Neutrophils # (auto) 3.83 K/uL (1.4-6.5); Neutrophils % (auto) 76.6 %; Platelet Estimate Decreased (Normal)
[2020-08-31 20:00] LABS: Albumin Globulin Ratio 0.8 (0.9-2); Alkaline Phosphatase 113 U/L (45-117); Bilirubin,Total 0.9 mg/dl (0.2-1); Globulin 3.9 gm/dl (2.5-4.0); Phosphorus 2.4 mg/dl (2.5-4.9); Total Protein 6.9 gm/dl (6.4-8.2); Troponin I < 0.015 ng/ml (0-0.045)
[2020-08-31 20:11] LABS: Hepatitis B Surface Antigen Neg (Neg)
--- NOTE | 2020-08-31 20:13 | CT Scan Report ---
CT head/brain wo con CLINICAL HISTORY: Recent falls with head trauma COMPARISON STUDY: No previous studies for comparison. TECHNIQUE: Axial CT of the brain is performed from the vertex to the skull base. IV contrast was not administered for this examination. A dose lowering technique was utilized adhering to the principles of ALARA. CT DOSE: 729.78 mGycm FINDINGS: No intra or extra-axial mass lesions are visualized. There is no CT evidence of acute cortical infarc tion. There is no evidence of midline shift. There is no acute hemorrhage. No calvarial fractures ar e visualized. There is mild cerebellar atrophy. There is no evidence of pathologic ventricular dilatation. There is no acute sinusitis. There is minor right maxillary sinus mucosal thickening. IMPRESSION: No acute intracranial findings ACT 112: Negative or not required by law. Electronically signed by: Joshua Tapia M.D. 08/31/2020 8:11 PM
--- NOTE | 2020-08-31 20:16 | CT Scan Report ---
CT SCAN OF THE ABDOMEN AND PELVIS WITHOUT CONTRAST CLINICAL HISTORY: Trauma. Liver disease. COMPARISON STUDY: 1118 TECHNIQUE: CT scan of the abdomen and pelvis was performed from the lung bases to the proximal femurs . Images are reviewed in the axial, sagittal, and coronal planes. IV contrast was not administered fo r this examination. A dose lowering technique was utilized adhering to the principles of ALARA. CT DOSE: 1270.29 mGycm FINDINGS: Lower chest: There is no pneumothorax. There are no pleural effusions Liver: No focal hepatic masses are visualized. Early cirrhotic changes are suspected. Gallbladder: Unremarkable. Spleen: Mildly enlarged measuring 13.2 cm Pancreas: Unremarkable. Adrenal glands: Unremarkable. Kidneys: The unenhanced kidneys are normal in size without hydronephrosis. There is no contour deform ing renal mass lesion. No renal calculi are identified. Bowel: There are no transition zones indicate bowel obstruction. There is no evidence of acute append icitis. There is no evidence of acute diverticulitis. Peritoneum: There is no intraperitoneal free air or abdominal ascites. There is a tiny fat-containing umbilical hernia Vasculature: There is no evidence of abdominal aortic aneurysm. There is an indwelling IVC filter. Adenopathy: None. Pelvic viscera: There is minor bladder wall thickening Skeletal structures: There is a total left hip arthroplasty. IMPRESSION: 1. No acute intra-abdominal or pelvic findings 2. No evidence of bowel obstruction. No evidence of free air 3. No evidence of acute appendicitis. No evidence of acute diverticulitis 4. Suspected cirrhotic liver morphology. Mild splenomegaly. ACT 112: Negative or not required by law. Electronically signed by: Joshua Tapia M.D. 08/31/2020 8:15 PM
[2020-08-31 20:39] LABS: Hepatitis C IgG 13Yrs+Old_Rflx Neg (Neg)
[2020-08-31 20:50] LABS: Appearance Urine Clear (Clear); Bilirubin Urine Negative (Negative); Blood Urine Negative (Negative); Color Urine Dark Yellow; Glucose Urine UA 2+ (Negative); Ketones Urine Negative (Negative); Leukocyte Esterase Urine Negative (Negative); Nitrite Urine Negative (Negative); Protein Urine Negative (Negative); Specific Gravity Urine 1.021 (1.000-1.030); Urobilinogen Urine Negative (Negative)
[2020-08-31] MEDS ORDERED: DIAZEPAM 5 MG/ML INJ 10ML VIAL IV STA (21:30)
[2020-08-31] MEDS ORDERED: LORazepam 2 MG/4 ML VIAL ONE (23:33)
[2020-09-01] MEDS ORDERED: ONDANSETRON INJ 2 MG/ML 2 ML VIAL IV PRN (01:12)
[2020-09-01] MEDS ORDERED: cloNIDine HCL 0.1 MG TAB PO PRN (01:12)
[2020-09-01] MEDS ORDERED: LORazepam 1 MG TAB PO STA (01:12)
[2020-09-01] MEDS ORDERED: GABAPENTIN 1200MG ALCOHOL WITHDRAWAL LOAD PO STA (01:12)
[2020-09-01] MEDS ORDERED: WARFARIN SOD 2 MG TAB PO SCH (01:12)
[2020-09-01] MEDS ORDERED: NITROGLYCERIN SL 0.4 MG/TAB TAB SL PRN (01:12)
[2020-09-01] MEDS ORDERED: GABAPENTIN 600 MG TAB PO ONE (01:12)
[2020-09-01] MEDS ORDERED: ATIVAN IV ALCOHOL WITHDRAWL IV PRN (01:12)
[2020-09-01] MEDS ORDERED: LORazepam 3 MG/6 ML VIAL IV PRN (01:12)
[2020-09-01] MEDS ORDERED: MULTI-VITAMIN INFUSION 10 ML, THIAMINE HCL 100 MG, FOLIC ACID 1 MG in SODIUM CHLORIDE 0... IV ONE (01:12)
[2020-09-01] MEDS ORDERED: POT PHOSPHATE MONOBASIC W/ SOD TAB PO STA (01:12)
[2020-09-01] MEDS ORDERED: TRAZODONE HCL 50 MG TAB PO PRN (01:12)
--- NOTE | 2020-09-01 01:23 | History and Physical Report ---
DATE OF ADMISSION: 08/31/2020 CHIEF COMPLAINT: Alcohol withdrawal. HISTORY OF PRESENT ILLNESS: This is a 49-year-old male with past medical history significant for type 2 diabetes, diabetic neuropathy, homozygous MTHFR mutation, history of DVT and pulmonary embolism, on Coumadin, status post IVC filter, hyperlipidemia, hypertension, portal hypertensive gastropathy, GERD, disk disorder of lumbar region, avascular necrosis of the left femoral head, degenerative disc disease, adjustment disorder with anxious mood, wants to get admitted for alcohol detox and possible rehab placement. The patient is also having ambulatory dysfunction. He just saw neurologist and supposed to get MRI scans on of this month. The patient says he is drinking about 10-20 beers everyday for a long time, he also smokes once in a while marijuana. Denies any tobacco abuse or any other drug abuse. Lives with his . Denies any other complaints. Currently resting comfortably and hemodynamically stable, last drink was 10 hours ago and feeling somewhat anxious and stiff. He has chronic sinusitis, sinus pain in the frontal region and nasal region. Plan to see ENT. Currently, no headache, no blurred visions. Ears feels blocked for a long time. No cough, no loss of sense of smell or taste. No dysphagia, no fever, chills. No nausea, vomiting. No chest pain or shortness of breath. No abdominal pain. Normal bowel and bladder movements. No hematuria or burning micturition, no blood in the stools or black stools. No rash. He recently fell and had some bruises on the back. ALLERGIES: No known drug allergies. PAST MEDICAL HISTORY: As mentioned above. PAST SURGICAL HISTORY: Colonoscopy, EGDs, Holter, IVC filter, left total hip replacement. MEDICATIONS: The patient is on acyclovir 200 mg as directed, Coreg 3.125 mg p.o. b.i.d., Librium 25 mg p.o. q. 4 hours p.r.n., vitamin D 125 mcg p.o. daily, citalopram 20 mg p.o. daily, vitamin B12 1000 mcg p.o. daily, folic acid 1 mg p.o. daily, hydroxyzine 10 mg p.o. daily p.r.n., metformin 1000 mg p.o. b.i.d., Protonix 40 mg p.o. daily, pregabalin 75 mg p.o. b.i.d., Xifaxan 550 mg p.o. b.i.d., vitamin B1 100 mg p.o. daily, trazodone 50 mg p.o. at bedtime p.r.n., Coumadin 2 mg p.o. daily. FAMILY HISTORY: Significant for father has asthma, heart failure, stroke. Sister has blood clots. SOCIAL HISTORY: , quit smoking in 2013, snuffs tobacco. Alcohol drinking 10-20 beers everyday for many years. Smokes marijuana once in a while. No drug use. REVIEW OF SYMPTOMS: As per HPI. Rest of review of symptoms negative. PHYSICAL EXAMINATION: GENERAL: The patient is of moderate build, not in acute distress. VITAL SIGNS: Temperature 36.8, pulse 58, respiratory rate 24, blood pressure 134/79, oxygen 96% on room air. HEENT: No pallor, no icterus. Pupils equal, round, reactive to light. NECK: No JVD, no neck masses, no carotid bruits. CARDIOVASCULAR: S1, S2 heard, regular rate and rhythm, no murmur, no gallop. RESPIRATORY SYSTEM: Normal AP diameter. No accessory muscle use. No wheezing, no crackles. ABDOMEN: Soft, bowel sounds present, nontender. No distention. CENTRAL NERVOUS SYSTEM: Cranial nerves II-XII grossly intact. Nonfocal. EXTREMITIES: No edema, no erythema. LABORATORY DATA: WBC 5, hemoglobin 13.5, hematocrit 40.6, platelets 68. PT 15.7, INR 1.5. Sodium 138, potassium 3.8, chloride 106, bicarb 24, BUN 11, creatinine 0.6, serum glucose 201, calcium 8.7, phosphorus 2.4, magnesium 1.8, total bilirubin 0.9, AST 34, ALT 24, alkaline phosphatase 113. Ammonia 34.5, troponin I less than 0.015. TSH 0.8. Urinalysis is negative. Ethyl alcohol less than 3. IMAGING: CT of the abdomen and pelvis, no acute intra-abdominal or pelvic findings, no evidence of bowel obstruction, no evidence of free air, no evidence of acute appendicitis, no evidence of acute diverticulitis, cirrhotic liver morphology with mild splenomegaly. CT of the head, no acute intracranial findings. Chest x-ray, no active disease in the chest. EKG: Sinus rhythm with PACs at a rate of 66, no acute ST changes seen. ASSESSMENT AND PLAN: This is a 49-year-old male who presents with alcoholism and request for alcohol detoxification. 1. Alcohol withdrawal. Drinks 10-20 beers every day for a long time. Last drink was 10 hours ago. Feeling anxious and stiff. We will give him banana bag, IV thiamine, IV folic acid daily, multivitamin daily. Place on gabapentin, withdrawal protocol with IV Ativan p.r.n. and closely monitor in tele. Once stable, social service consult for possible rehab placement. 2. History of diabetes. Hold his home metformin, place insulin sliding scale. Follow the blood sugars. 3. History of gastroesophageal reflux disease. Continue his Protonix. 4. History of depression. Continue citalopram. 5. History of homozygous MTHFR mutation, history of DVT, history of PE, status post IVC filter, on Coumadin. INR is subtherapeutic at 1.5. We will follow daily PT/INR and adjust Coumadin dose. 6. Thrombocytopenia secondary to alcoholism. Alcohol liver cirrhosis. Closely monitor platelets while the patient is on Coumadin. 7. History of liver cirrhosis secondary to alcoholic liver cirrhosis, on Xifaxan, which we will continue. Follow repeat ammonia levels. Counseling for alcohol cessation. 8. Hypophosphatemia. We will replace. Follow the repeat labs. 9. Deep venous thrombosis prophylaxis, sequential compression devices. Follow the PT/INR. DISPOSITION: Closely monitor in the tele. Level 1 full code. Expect discharge to home or rehab when stable. Social service to help with discharge planning. Level 1 full code. MTDD
[2020-09-01] MEDS ORDERED: GLUCOSE 40% GEL 15 GM TUBE PO PRN (01:30)
[2020-09-01] MEDS ORDERED: GLUCOSE 10 TABS/TUBE PO PRN (01:30)
[2020-09-01] MEDS ORDERED: CARBOHYDRATES FOR HYPOGLYCEMIA PO PRN (01:30)
[2020-09-01] MEDS ORDERED: GLUCAGON FOR INJ 1 MG VIAL SQ PRN (01:30)
[2020-09-01] MEDS ORDERED: DEXTROSE 50% 50 ML SYRINGE IV PRN (01:30)
[2020-09-01] MEDS: THIAMINE HCL 100 MG in SYRINGE 9 ML IV SCH ×2 (02:49→08:51)
[2020-09-01] MEDS: FOLIC ACID 1 MG in SYRINGE 9.8 ML IV SCH ×2 (02:49→08:51)
[2020-09-01] MEDS: carvediloL 3.125 MG TAB PO SCH ×3 (02:51→21:30)
[2020-09-01] MEDS: GABAPENTIN 600 MG TAB PO SCH ×3 (05:21→21:30)
[2020-09-01 05:29] LABS: Hematocrit (blood only) 34.7 % (42-52); Hemoglobin 11.4 g/dL (14.0-18.0); Mean Corpuscular Hemoglobin 30.3 pg (25-34); Mean Corpuscular Hgb Conc 32.9 g/dL (32-36); Mean Corpuscular Volume 92.3 fL (80-100); RDW Coefficient of Variation 16.8 % (11.5-14.5); RDW Standard Deviation 56.9 fL (36.4-46.3); Red Blood Count 3.76 M/uL (4.7-6.1); White Blood Count 4.32 K/uL (4.8-10.8)
[2020-09-01 05:39] LABS: INR 1.5 (0.9-1.1); Prothrombin Time 15.6 Seconds (9.0-12.0)
[2020-09-01 05:44] LABS: Mean Platelet Volume 10.5 fL (7.4-10.4); Platelet Count 61 K/uL (130-400)
[2020-09-01 05:49] LABS: BUN Creatinine Ratio 17.2 (10-20); Calcium 7.8 mg/dl (8.5-10.1); Creatinine Clr Calc Pharmacy 248.6 ml/min; Est GFR (African American) 148.4; Magnesium 1.7 mg/dl (1.8-2.4); Potassium 3.7 mmol/L (3.5-5.1)
[2020-09-01 05:50] LABS: Phosphorus 3.1 mg/dl (2.5-4.9)
[2020-09-01 05:58] LABS: Basophils # (auto) 0.01 K/uL (0-0.2); Basophils % (auto) 0.2 %; Eosinophils % (auto) 2.3 %; Lymphocytes % (auto) 27.8 %; Monocytes # (auto) 0.49 K/uL (0.11-0.59); Monocytes % (auto) 11.3 %; Neutrophils # (auto) 2.52 K/uL (1.4-6.5); Neutrophils % (auto) 58.4 %
[2020-09-01 07:01] LABS: Estimated Average Glucose 111 mg/dl; Hemoglobin A1C 5.5 % (4.5-5.6)
[2020-09-01] MEDS: PREGABALIN 75 MG CAP PO SCH ×2 (08:48→21:35)
[2020-09-01] MEDS: CYANOCOBALAMIN 500 MCG TABLET (VITAMIN B-12) PO SCH (08:49)
[2020-09-01] MEDS: CITALOPRAM 20 MG TAB PO SCH (08:49)
[2020-09-01] MEDS: CHOLECALCIFEROL 1,000 UNITS 25 MCG TAB PO SCH (08:49)
[2020-09-01] MEDS: CEROVITE ADV FORMULA TAB PO SCH (08:50)
[2020-09-01] MEDS: INSULIN ASPART 100 UNITS/ML 3 ML PEN SC SCH ×4 (08:50→21:49)
[2020-09-01] MEDS: PANTOprazole 40 MG TAB PO SCH (08:50)
[2020-09-01] MEDS: RIFAXIMIN 550 MG TABLET PO SCH ×2 (08:51→21:30)
[2020-09-01 09:49] LABS: Folate (Folic Acid) > 24.00 ng/ml (>5.38); Vitamin B12 614 pg/ml (211-911)
--- NOTE | 2020-09-01 10:45 | Electrocardiogram Report ---
Test Reason : Blood Pressure : / mmHG Vent. Rate : 066 BPM Atrial Rate : 066 BPM P-R Int : 178 ms QRS Dur : 096 ms QT Int : 408 ms P-R-T Axes : 036 032 071 degrees QTc Int : 427 ms Poor data quality, interpretation may be adversely affected Sinus rhythm with Premature atrial complexes Otherwise normal ECG When compared with ECG of 21-NOV-2015 16:58, Premature atrial complexes are now Present Confirmed by Daniel Milian ([id number]) on 09/01/2020 10:45:10 AM Referred By: REFERRED SELF Confirmed By:Vin Milian
[2020-09-01] MEDS: LORazepam 1 MG/2 ML VIAL IV PRN ×2 (12:21→19:28)
--- NOTE | 2020-09-01 14:27 | Hospitalist Progress Note ---
Date of Service September 01, 2020 Assessment & Plan (1) Alcohol withdrawal syndrome: Drinks about 10-20 beers a day and has been doing for a long time Was very anxious and stiff at presentation Wanted to have detox in a facility Has been on withdrawal protocol Remains anxious and has minimal tremors on outstretched hands (2) Thrombocytopenia: Secondary (3) Back pain: History of chronic back pain Continue home medications (4) Diabetes type 2, controlled: Globin A1c is 5.3 (5) MTHFR mutation: History of MTHFR mutation and has been on Coumadin Prior history of DVT and pulmonary embolism INR remains subtherapeutic at 1.5 Will give increased dose of Coumadin today and monitor INR (6) History of deep venous thrombosis or pulmonary embolus: (7) Hypertension: Blood pressure seems to be controlled (8) Hyperlipidemia: (9) Adjustment disorder with anxious mood: Continue current antidepressant DVT prophylaxis On Coumadin CODE STATUS Full Admission and Anticipated Discharge Date Admission Date: September 01, 2020 Subjective 09/01/2020 He is a 49-year-old obese male with significant past medical history of alcoholism with other medical conditions as mentioned in H&P was admitted with withdrawal symptoms He has been drinking more and having problem with ambulation Wants to have detox in an inpatient facility Review of Systems Review of Systems: All systems reviewed and are unremarkable except as noted below Constitutional: + fatigue, + malaise, + weakness and + weight gain Neurologic: + unsteadiness, + generalized weakness and + tremor(s); no confusion and no memory loss Physical Exam Physical Exam: Lying in bed comfortably but looks depressed Constitutional: well developed, well nourished, + ill appearing and + obese; no acute distress Eyes: PERRL, conjunctivae normal, anicteric sclerae ENMT: external ear and nose normal, oropharynx normal Neck: trachea midline, no thyromegaly Respiratory: normal respiratory effort; no respiratory distress Auscultation: lungs clear to auscultation bilaterally Cardiovascular: Rate/Rhythm: regular rate and regular rhythm Heart Sounds: no murmur Extremities: + edema Gastrointestinal (Abdomen): Inspection/Auscultation: abdomen normal to inspection; abdomen not distended Percussion/Palpation: abdomen soft Musculoskeletal: No acute arthritis involving any joint Neurologic: moves all extremities; no focal motor deficits Speech / Cognition: normal speech Has tremors involving the outstretched hands Psychiatric: A+Ox3, euthymic affect Insight: good insight Lymphatic: no cervical or axillary lymphadenopathy Results & Data Results & Data ([facility]) Vital Signs (Past 12 Hours) Vital Signs Temp Pulse Resp BP Pulse Ox 09/01/20 12:19 36.9 C 62 18 139/87 96 09/01/20 08:30 36.7 C 54 L 18 127/82 98 09/01/20 05:09 37.1 C 75 18 137/70 18 L Laboratory Results Short CBC 08/31/20 09/01/20 Range/Units 19:15 05:13 WBC 5.00 4.32 L (4.8-10.8) K/uL Hgb 13.5 L 11.4 L (14.0-18.0) g/dL Hct 40.6 L 34.7 L (42-52) % Plt Count 68 L 61 L (130-400) K/uL BMP 08/31/20 09/01/20 19:15 05:13 Sodium 138 140 Potassium 3.8 3.7 Chloride 106 109 H Carbon Dioxide 24 26 BUN 11 9 Creatinine 0.65 0.51 L Glucose 201 H 132 H Calcium 8.7 7.8 L Cardiac Enzymes 08/31/20 Range/Units 19:15 Troponin I < 0.015 (0-0.045) ng/ml Liver Function 08/31/20 Range/Units 19:15 Total Bilirubin 0.9 (0.2-1) mg/dl AST 34 (15-37) U/L ALT 24 (12-78) U/L Alkaline Phosphatase 113 (45-117) U/L Albumin 3.0 L (3.4-5.0) gm/dl Urine 08/31/20 Range/Units 20:35 Urine Color Dark Yellow Urine Appearance Clear (Clear) Urine pH 7.0 (4.5-7.5) Ur Specific [place] 1.021 (1.000-1.030) Urine Protein Negative (Negative) Urine Glucose (UA) 2+ H (Negative) Medications Administered Current Inpatient Medications Carvedilol (Carvedilol 3.125 Mg Tab) 3.125 mg PO BID [facility] Stop: 10/01/20 01:11 Last Admin: 09/01/20 08:48 Dose: 3.125 mg Documented by: Citalopram Hydrobromide (Citalopram 20 Mg Tab) 20 mg PO DAILY [facility] Stop: 10/01/20 08:59 Last Admin: 09/01/20 08:49 Dose: 20 mg Documented by: Clonidine HCl (Clonidine Hcl 0.1 Mg Tab) 0.1 mg PO Q4H PRN PRN Reason: Hypertension Stop: 10/01/20 01:11 Cyanocobalamin (Cyanocobalamin 500 Mcg Tablet (Vitamin B-12)) 1,000 mcg PO DAILY [facility] Stop: 10/01/20 08:59 Last Admin: 09/01/20 08:49 Dose: 1,000 mcg Documented by: Dextrose (Dextrose 50% 50 Ml Syringe) 25 - 50 ml IV UD PRN; Protocol PRN Reason: Hypoglycemia Protocol Stop: 10/01/20 01:29 Gabapentin (Gabapentin 600 Mg Tab) 600 mg PO Q12H LUCIO Stop: 09/03/20 12:01 Gabapentin (Gabapentin 600 Mg Tab) 600 mg PO Q24H [facility] Stop: 09/04/20 12:01 Gabapentin (Gabapentin 600 Mg Tab) 600 mg PO Q8H LUCIO Stop: 09/02/20 12:01 Glucagon (Glucagon For Inj 1 Mg Vial) 1 mg SQ UD PRN; Protocol PRN Reason: Hypoglycemia Protocol Stop: 10/01/20 01:29 Glucose (Glucose 40% Gel 15 Gm Tube) 15 - 30 gm PO UD PRN; Protocol PRN Reason: Hypoglycemia Protocol Stop: 10/01/20 01:29 Glucose (Glucose 10 Tabs/Tube) 4 - 8 tabs PO UD PRN; Protocol PRN Reason: Hypoglycemia Protocol Stop: 10/01/20 01:29 Hydroxyzine HCl (Hydroxyzine Hcl 10 Mg Tab) 10 mg PO DAILY PRN PRN Reason: Anxiety Stop: 10/01/20 01:11 Folic Acid 1 mg/ Syringe 10 mls @ 5 mls/min IV QAM LUCIO Stop: 10/01/20 01:11 Last Admin: 09/01/20 08:51 Dose: 5 mls/min Documented by: Thiamine HCl 100 mg/ Syringe 10 mls @ 2 mls/min IV QAM [facility]IO Stop: 10/01/20 01:11 Last Admin: 09/01/20 08:51 Dose: 2 mls/min Documented by: Lorazepam (Ativan) 1 mg in 2 mls @ 2 mls/min IV UD PRN; Protocol PRN Reason: EtOH Withdrawl AWSS Score 6,7 Stop: 10/01/20 01:11 Last Admin: 09/01/20 12:21 Dose: 2 mls/min Documented by: Lorazepam (Ativan) 2 mg in 4 mls @ 4 mls/min IV UD PRN; Protocol PRN Reason: EtOH Withdrawl AWSS Score 8,9 Stop: 10/01/20 01:11 Lorazepam (Ativan) 3 mg in 6 mls @ 4 mls/min IV ONCE PRN; Protocol PRN Reason: EtOH Withdrawl AWSS Score >=10 Stop: 10/01/20 01:11 Insulin Aspart (Insulin Aspart 100 Units/Ml 3 Ml Pen) 0 units SC ACHS [facility] Stop: 10/01/20 07:29 Last Admin: 09/01/20 12:14 Dose: 2 units Documented by: Miscellaneous (Carbohydrates For Hypoglycemia ) 15 - 30 gm PO UD PRN PRN Reason: Hypoglycemia Treatment Stop: 10/01/20 01:29 Multivitamins/Minerals (Cerovite Adv Formula Tab) 1 tab PO QAM [facility] Stop: 10/01/20 08:59 Last Admin: 09/01/20 08:50 Dose: 1 tab Documented by: Nitroglycerin (Nitroglycerin Sl 0.4 Mg/Tab Tab) 0.4 mg SL UD PRN PRN Reason: Chest Pain Stop: 10/01/20 01:11 Ondansetron HCl (Ondansetron Inj 2 Mg/Ml 2 Ml Vial) 4 mg IV Q6H PRN PRN Reason: Nausea Stop: 10/01/20 01:11 Pantoprazole Sodium (Pantoprazole 40 Mg Tab) 40 mg PO DAILY [facility] Stop: 10/01/20 08:59 Last Admin: 09/01/20 08:50 Dose: 40 mg Documented by: Pregabalin (Pregabalin 75 Mg Cap) 75 mg PO BID [facility] Stop: 10/01/20 08:59 Last Admin: 09/01/20 08:48 Dose: 75 mg Documented by: Rifaximin (Rifaximin 550 Mg Tablet) 550 mg PO BID [facility] Stop: 10/01/20 08:59 Last Admin: 09/01/20 08:51 Dose: 550 mg Documented by: Trazodone HCl (Trazodone Hcl 50 Mg Tab) 50 mg PO HS PRN PRN Reason: Sleep Stop: 10/01/20 01:11 Vitamin D (Cholecalciferol 1,000 Units 25 Mcg Tab) 1,000 units PO DAILY [facility] Stop: 10/01/20 08:59 Last Admin: 09/01/20 08:49 Dose: 1,000 units Documented by: Warfarin Sodium (Warfarin Sod 2 Mg Tab) 2 mg PO DAILY@1600 [facility] Stop: 10/01/20 01:11 Last Admin: 09/01/20 02:50 Dose: 2 mg Documented by: (1) Alcohol withdrawal syndrome Complication of substance-induced condition: uncomplicated Qualified Code(s): F10.230 - Alcohol dependence with withdrawal, uncomplicated
[2020-09-01] MEDS: WARFARIN SOD 4 MG TAB PO SCH (16:14)
[2020-09-01] MEDS ORDERED: LORazepam 1 MG/2 ML VIAL IV STA (20:09)
[2020-09-01] MEDS: DICLOFENAC SOD 1% GEL 100 GM TUBE EXT SCH (21:31)
[2020-09-02] MEDS: GABAPENTIN 600 MG TAB PO SCH ×2 (04:43→12:28)
[2020-09-02 06:41] LABS: Hemoglobin 12.2 g/dL (14.0-18.0); Mean Corpuscular Hemoglobin 30.1 pg (25-34); Mean Corpuscular Hgb Conc 32.1 g/dL (32-36); Mean Corpuscular Volume 93.8 fL (80-100); RDW Coefficient of Variation 17.2 % (11.5-14.5); RDW Standard Deviation 59.4 fL (36.4-46.3); Red Blood Count 4.05 M/uL (4.7-6.1); White Blood Count 3.65 K/uL (4.8-10.8)
[2020-09-02 06:43] LABS: Platelet Count 65 K/uL (130-400)
[2020-09-02 06:50] LABS: INR 1.3 (0.9-1.1)
[2020-09-02 07:08] LABS: Basophils # (auto) 0.01 K/uL (0-0.2); Basophils % (auto) 0.3 %; Eosinophils # (auto) 0.06 K/uL (0-0.5); Eosinophils % (auto) 1.6 %; Immature Granulocytes # (auto) 0.01 K/uL (0.00-0.02); Immature Granulocytes % (auto) 0.3 %; Lymphocytes # (auto) 1.08 K/uL (1.2-3.4); Lymphocytes % (auto) 29.6 %; Monocytes # (auto) 0.39 K/uL (0.11-0.59); Monocytes % (auto) 10.7 %; Neutrophils % (auto) 57.5 %
[2020-09-02 07:20] LABS: BUN Creatinine Ratio 13.6 (10-20); Creatinine Clr Calc Pharmacy 203.7 ml/min; Est GFR (African American) 136.9; Est GFR (Non-African American) 118.1; Magnesium 1.9 mg/dl (1.8-2.4)
[2020-09-02] MEDS: PREGABALIN 75 MG CAP PO SCH ×2 (07:46→20:33)
[2020-09-02] MEDS: CITALOPRAM 20 MG TAB PO SCH (07:46)
[2020-09-02] MEDS: carvediloL 3.125 MG TAB PO SCH ×2 (07:47→20:09)
[2020-09-02] MEDS: RIFAXIMIN 550 MG TABLET PO SCH ×2 (07:47→20:12)
[2020-09-02] MEDS: CHOLECALCIFEROL 1,000 UNITS 25 MCG TAB PO SCH (07:48)
[2020-09-02] MEDS: DICLOFENAC SOD 1% GEL 100 GM TUBE EXT SCH ×2 (07:49→20:12)
[2020-09-02] MEDS: CYANOCOBALAMIN 500 MCG TABLET (VITAMIN B-12) PO SCH (07:49)
[2020-09-02] MEDS: PANTOprazole 40 MG TAB PO SCH (07:49)
[2020-09-02 07:50] LABS: Hepatitis A Antibody IgM NON-REACTIVE (NON-REACTIVE); Hepatitis B Core Antibody IgM NON-REACTIVE (NON-REACTIVE)
[2020-09-02] MEDS: FOLIC ACID 1 MG in SYRINGE 9.8 ML IV SCH (07:50)
[2020-09-02] MEDS: THIAMINE HCL 100 MG in SYRINGE 9 ML IV SCH (07:51)
[2020-09-02] MEDS: CEROVITE ADV FORMULA TAB PO SCH (07:51)
[2020-09-02] MEDS: INSULIN ASPART 100 UNITS/ML 3 ML PEN SC SCH ×4 (08:00→23:02)
[2020-09-02] MEDS: LORazepam 1 MG/2 ML VIAL IV PRN ×4 (09:09→17:44)
--- NOTE | 2020-09-02 13:20 | Hospitalist Progress Note ---
Date of Service September 02, 2020 Assessment & Plan (1) Alcohol withdrawal syndrome: Drinks about 10-20 beers a day and has been doing for a long time Was very anxious and stiff at presentation Wanted to have detox in a facility Has been on withdrawal protocol Remains anxious and has minimal tremors on outstretched hands More anxious today and has been crying Has unsteadiness and increasing tremor We will continue current management of withdrawal symptoms (2) Thrombocytopenia: Secondary (3) Back pain: History of chronic back pain Continue home medications (4) Diabetes type 2, controlled: Globin A1c is 5.3 (5) MTHFR mutation: History of MTHFR mutation and has been on Coumadin Prior history of DVT and pulmonary embolism INR remains subtherapeutic at 1.5 Will give increased dose of Coumadin today and monitor INR-therapeutic Continue higher dose of Coumadin (6) History of deep venous thrombosis or pulmonary embolus: (7) Hypertension: Blood pressure seems to be controlled (8) Hyperlipidemia: (9) Adjustment disorder with anxious mood: Continue current antidepressant Has been on Celexa To be more depressed and has been crying Get psychiatric evaluation tomorrow DVT prophylaxis On Coumadin CODE STATUS Full Admission and Anticipated Discharge Date Admission Date: September 01, 2020 Subjective 09/01/2020 He is a 49-year-old obese male with significant past medical history of alcoholism with other medical conditions as mentioned in H&P was admitted with withdrawal symptoms He has been drinking more and having problem with ambulation Wants to have detox in an inpatient facility 09/02/2020 Patient was seen and examined in telemetry unit He complains to have severe depression and is craving for alcohol Minimal tremor with outstretched hands denies any palpitation Review of Systems Review of Systems: All systems reviewed and are unremarkable except as noted below Constitutional: + fatigue, + malaise, + weakness and + weight gain Neurologic: + unsteadiness, + generalized weakness and + tremor(s); no confusion and no memory loss Physical Exam Physical Exam: Lying in bed comfortably but looks depressed and has been crying since this morning Constitutional: well developed, well nourished, + ill appearing and + obese; no acute distress Eyes: PERRL, conjunctivae normal, anicteric sclerae ENMT: external ear and nose normal, oropharynx normal Neck: trachea midline, no thyromegaly Respiratory: normal respiratory effort; no respiratory distress Auscultation: lungs clear to auscultation bilaterally Cardiovascular: Rate/Rhythm: regular rate and regular rhythm Heart Sounds: no murmur Extremities: + edema Gastrointestinal (Abdomen): Inspection/Auscultation: abdomen normal to inspection; abdomen not distended Percussion/Palpation: abdomen soft Musculoskeletal: No acute arthritis involving any joint Neurologic: moves all extremities; no focal motor deficits Speech / Cognition: normal speech Psychiatric: Orientation: alert and oriented x 3 Affect: + depressed affect Mood: + depressed mood Insight: good insight Lymphatic: no cervical or axillary lymphadenopathy Results & Data Results & Data ([facility]) Vital Signs (Past 12 Hours) Vital Signs Temp Pulse Resp BP Pulse Ox 09/02/20 12:02 36.8 C 73 18 159/98 H 95 09/02/20 08:14 36.5 C 66 18 162/93 H 94 09/02/20 04:40 36.8 C 56 L 18 135/81 96 Laboratory Results Short CBC 09/02/20 Range/Units 06:28 WBC 3.65 L (4.8-10.8) K/uL Hgb 12.2 L (14.0-18.0) g/dL Hct 38.0 L (42-52) % Plt Count 65 L (130-400) K/uL BMP 09/02/20 06:28 Sodium 139 Potassium 4.0 Chloride 107 Carbon Dioxide 28 BUN 8 Creatinine 0.62 Glucose 86 Calcium 9.0 D Medications Administered Current Inpatient Medications Carvedilol (Carvedilol 3.125 Mg Tab) 3.125 mg PO BID [facility] Stop: 10/01/20 01:11 Last Admin: 09/02/20 07:47 Dose: 3.125 mg Documented by: Citalopram Hydrobromide (Citalopram 20 Mg Tab) 20 mg PO DAILY [facility] Stop: 10/01/20 08:59 Last Admin: 09/02/20 07:46 Dose: 20 mg Documented by: Clonidine HCl (Clonidine Hcl 0.1 Mg Tab) 0.1 mg PO Q4H PRN PRN Reason: Hypertension Stop: 10/01/20 01:11 Cyanocobalamin (Cyanocobalamin 500 Mcg Tablet (Vitamin B-12)) 1,000 mcg PO DAILY [facility]IO Stop: 10/01/20 08:59 Last Admin: 09/02/20 07:49 Dose: 1,000 mcg Documented by: Dextrose (Dextrose 50% 50 Ml Syringe) 25 - 50 ml IV UD PRN; Protocol PRN Reason: Hypoglycemia Protocol Stop: 10/01/20 01:29 Diclofenac Sodium (Diclofenac Sod 1% Gel 100 Gm Tube) 2 gm EXT BID [facility]UCIO Stop: 10/01/20 20:59 Last Admin: 09/02/20 07:49 Dose: Not Given Documented by: Gabapentin (Gabapentin 600 Mg Tab) 600 mg PO Q12H [facility] Stop: 09/03/20 12:01 Gabapentin (Gabapentin 600 Mg Tab) 600 mg PO Q24H [facility] Stop: 09/04/20 12:01 Glucagon (Glucagon For Inj 1 Mg Vial) 1 mg SQ UD PRN; Protocol PRN Reason: Hypoglycemia Protocol Stop: 10/01/20 01:29 Glucose (Glucose 40% Gel 15 Gm Tube) 15 - 30 gm PO UD PRN; Protocol PRN Reason: Hypoglycemia Protocol Stop: 10/01/20 01:29 Glucose (Glucose 10 Tabs/Tube) 4 - 8 tabs PO UD PRN; Protocol PRN Reason: Hypoglycemia Protocol Stop: 10/01/20 01:29 Hydroxyzine HCl (Hydroxyzine Hcl 10 Mg Tab) 10 mg PO DAILY PRN PRN Reason: Anxiety Stop: 10/01/20 01:11 Folic Acid 1 mg/ Syringe 10 mls @ 5 mls/min IV QAM [facility] Stop: 10/01/20 01:11 Last Admin: 09/02/20 07:50 Dose: 5 mls/min Documented by: Thiamine HCl 100 mg/ Syringe 10 mls @ 2 mls/min IV QAM [facility] Stop: 10/01/20 01:11 Last Admin: 09/02/20 07:51 Dose: 2 mls/min Documented by: Lorazepam (Ativan) 1 mg in 2 mls @ 2 mls/min IV UD PRN; Protocol PRN Reason: EtOH Withdrawl AWSS Score 6,7 Stop: 10/01/20 01:11 Last Admin: 09/02/20 12:34 Dose: 2 mls/min Documented by: Lorazepam (Ativan) 2 mg in 4 mls @ 4 mls/min IV UD PRN; Protocol PRN Reason: EtOH Withdrawl AWSS Score 8,9 Stop: 10/01/20 01:11 Lorazepam (Ativan) 3 mg in 6 mls @ 4 mls/min IV ONCE PRN; Protocol PRN Reason: EtOH Withdrawl AWSS Score >=10 Stop: 10/01/20 01:11 Insulin Aspart (Insulin Aspart 100 Units/Ml 3 Ml Pen) 0 units SC ACHS [facility] Stop: 10/01/20 07:29 Last Admin: 09/02/20 12:26 Dose: 2 units Documented by: Miscellaneous (Carbohydrates For Hypoglycemia ) 15 - 30 gm PO UD PRN PRN Reason: Hypoglycemia Treatment Stop: 10/01/20 01:29 Multivitamins/Minerals (Cerovite Adv Formula Tab) 1 tab PO QAM [facility] Stop: 10/01/20 08:59 Last Admin: 09/02/20 07:51 Dose: 1 tab Documented by: Nitroglycerin (Nitroglycerin Sl 0.4 Mg/Tab Tab) 0.4 mg SL UD PRN PRN Reason: Chest Pain Stop: 10/01/20 01:11 Ondansetron HCl (Ondansetron Inj 2 Mg/Ml 2 Ml Vial) 4 mg IV Q6H PRN PRN Reason: Nausea Stop: 10/01/20 01:11 Pantoprazole Sodium (Pantoprazole 40 Mg Tab) 40 mg PO DAILY [facility] Stop: 10/01/20 08:59 Last Admin: 09/02/20 07:49 Dose: 40 mg Documented by: Pregabalin (Pregabalin 75 Mg Cap) 75 mg PO BID [facility] Stop: 10/01/20 08:59 Last Admin: 09/02/20 07:46 Dose: 75 mg Documented by: Rifaximin (Rifaximin 550 Mg Tablet) 550 mg PO BID [facility] Stop: 10/01/20 08:59 Last Admin: 09/02/20 07:47 Dose: 550 mg Documented by: Trazodone HCl (Trazodone Hcl 50 Mg Tab) 50 mg PO HS PRN PRN Reason: Sleep Stop: 10/01/20 01:11 Vitamin D (Cholecalciferol 1,000 Units 25 Mcg Tab) 1,000 units PO DAILY [facility] Stop: 10/01/20 08:59 Last Admin: 09/02/20 07:48 Dose: 1,000 units Documented by: Warfarin Sodium (Warfarin Sod 4 Mg Tab) 4 mg PO DAILY@1600 [facility] Stop: 10/01/20 15:59 Last Admin: 09/01/20 16:14 Dose: 4 mg Documented by: (1) Alcohol withdrawal syndrome Complication of substance-induced condition: uncomplicated Qualified Code(s): F10.230 - Alcohol dependence with withdrawal, uncomplicated
[2020-09-02] MEDS: WARFARIN SOD 4 MG TAB PO SCH (15:36)
[2020-09-02] MEDS: LORazepam 2 MG/4 ML VIAL IV PRN ×2 (16:28→20:33)
[2020-09-03] MEDS: GABAPENTIN 600 MG TAB PO SCH ×2 (00:10→12:02)
[2020-09-03] MEDS: LORazepam 2 MG/4 ML VIAL IV PRN ×3 (00:22→17:58)
[2020-09-03 06:59] LABS: Hematocrit (blood only) 38.8 % (42-52); Hemoglobin 12.9 g/dL (14.0-18.0); Mean Corpuscular Hemoglobin 30.9 pg (25-34); Mean Corpuscular Hgb Conc 33.2 g/dL (32-36); Mean Corpuscular Volume 92.8 fL (80-100); RDW Coefficient of Variation 16.9 % (11.5-14.5); RDW Standard Deviation 57.7 fL (36.4-46.3); Red Blood Count 4.18 M/uL (4.7-6.1); White Blood Count 4.03 K/uL (4.8-10.8)
[2020-09-03 07:11] LABS: INR 1.3 (0.9-1.1)
[2020-09-03 07:12] LABS: Mean Platelet Volume 11.1 fL (7.4-10.4); Platelet Count 74 K/uL (130-400)
[2020-09-03 07:28] LABS: BUN Creatinine Ratio 18.1 (10-20); Calcium 8.6 mg/dl (8.5-10.1); Creatinine Clr Calc Pharmacy 235.9 ml/min; Magnesium 1.9 mg/dl (1.8-2.4); Potassium 3.6 mmol/L (3.5-5.1)
[2020-09-03 07:33] LABS: Basophils # (auto) 0.01 K/uL (0-0.2); Basophils % (auto) 0.2 %; Eosinophils # (auto) 0.07 K/uL (0-0.5); Eosinophils % (auto) 1.7 %; Lymphocytes # (auto) 1.23 K/uL (1.2-3.4); Lymphocytes % (auto) 30.5 %; Monocytes # (auto) 0.57 K/uL (0.11-0.59); Monocytes % (auto) 14.1 %; Neutrophils # (auto) 2.15 K/uL (1.4-6.5); Neutrophils % (auto) 53.5 %
[2020-09-03 07:34] LABS: Phosphorus 3.4 mg/dl (2.5-4.9)
[2020-09-03] MEDS: PANTOprazole 40 MG TAB PO SCH (07:44)
[2020-09-03] MEDS: CHOLECALCIFEROL 1,000 UNITS 25 MCG TAB PO SCH (07:44)
[2020-09-03] MEDS: RIFAXIMIN 550 MG TABLET PO SCH ×2 (07:45→22:36)
[2020-09-03] MEDS: CYANOCOBALAMIN 500 MCG TABLET (VITAMIN B-12) PO SCH (07:45)
[2020-09-03] MEDS: CEROVITE ADV FORMULA TAB PO SCH (07:45)
[2020-09-03] MEDS: carvediloL 3.125 MG TAB PO SCH ×2 (07:46→22:36)
[2020-09-03] MEDS: DICLOFENAC SOD 1% GEL 100 GM TUBE EXT SCH ×2 (07:47→22:36)
[2020-09-03] MEDS: CITALOPRAM 20 MG TAB PO SCH (07:48)
[2020-09-03] MEDS: FOLIC ACID 1 MG in SYRINGE 9.8 ML IV SCH (07:49)
[2020-09-03] MEDS: THIAMINE HCL 100 MG in SYRINGE 9 ML IV SCH (07:49)
[2020-09-03] MEDS: PREGABALIN 75 MG CAP PO SCH ×2 (07:52→22:36)
[2020-09-03] MEDS: LORazepam 1 MG/2 ML VIAL IV PRN ×2 (08:03→14:26)
[2020-09-03] MEDS: INSULIN ASPART 100 UNITS/ML 3 ML PEN SC SCH ×4 (08:06→21:52)
--- NOTE | 2020-09-03 13:29 | Hospitalist Progress Note ---
Date of Service September 03, 2020 Assessment & Plan (1) Alcohol withdrawal syndrome: Drinks about 10-20 beers a day and has been doing for a long time Was very anxious and stiff at presentation Wanted to have detox in a facility Has been on withdrawal protocol Remains anxious and has minimal tremors on outstretched hands More anxious today and has been crying Has unsteadiness and increasing tremor We will continue current management of withdrawal symptoms Has been having more withdrawal symptoms and will need increasing dose of Ativan History of unsteady gait associated with dysphasia and memory impairment We will get an MRI with and without contrast to rule out any intracranial path ology (2) Thrombocytopenia: Secondary (3) Back pain: History of chronic back pain Continue home medications (4) Diabetes type 2, controlled: Globin A1c is 5.3 (5) MTHFR mutation: History of MTHFR mutation and has been on Coumadin Prior history of DVT and pulmonary embolism INR remains subtherapeutic at 1.5 Will give increased dose of Coumadin today and monitor INR-therapeutic Continue higher dose of Coumadin (6) History of deep venous thrombosis or pulmonary embolus: (7) Hypertension: Blood pressure seems to be controlled (8) Hyperlipidemia: (9) Adjustment disorder with anxious mood: Continue current antidepressant Has been on Celexa To be more depressed and has been crying Psychiatry consulted DVT prophylaxis On Coumadin CODE STATUS Full PT and OT evaluation Will need inpatient alcohol rehab program placement Admission and Anticipated Discharge Date Admission Date: September 01, 2020 Subjective 09/01/2020 He is a 49-year-old obese male with significant past medical history of alcoholism with other medical conditions as mentioned in H&P was admitted with withdrawal symptoms He has been drinking more and having problem with ambulation Wants to have detox in an inpatient facility 09/02/2020 Patient was seen and examined in telemetry unit He complains to have severe depression and is craving for alcohol Minimal tremor with outstretched hands denies any palpitation 09/03/2020 The patient was seen and examined in the telemetry unit He remains very shaky, unsteady and anxious Denies any nausea and or vomiting Review of Systems Review of Systems: All systems reviewed and are unremarkable except as noted below Constitutional: + fatigue, + malaise, + weakness and + weight gain Neurologic: + unsteadiness, + generalized weakness and + tremor(s); no confusion and no memory loss Physical Exam Physical Exam: Sitting at the edge of the bed with extreme anxiety Constitutional: well developed, well nourished, + ill appearing, + obese and + altered mental status; no acute distress Eyes: PERRL, conjunctivae normal, anicteric sclerae ENMT: external ear and nose normal, oropharynx normal Neck: trachea midline, no thyromegaly Respiratory: normal respiratory effort; no respiratory distress Auscultation: lungs clear to auscultation bilaterally Cardiovascular: Rate/Rhythm: regular rate and regular rhythm Heart Sounds: no murmur Extremities: + edema Gastrointestinal (Abdomen): Inspection/Auscultation: abdomen normal to inspection; abdomen not distended Percussion/Palpation: abdomen soft Musculoskeletal: No acute arthritis in any joints Neurologic: moves all extremities; no focal motor deficits Speech / Cog nition: normal speech Alert and awake. Seems to be pleasantly confused with tremors involving the hands and legs Psychiatric: A+Ox3, euthymic affect Orientation: alert and oriented x 3 Affect: + depressed affect Mood: + depressed mood Lymphatic: no cervical or axillary lymphadenopathy Results & Data Results & Data ([facility]) Vital Signs (Past 12 Hours) Vital Signs Temp Pulse Resp BP BP Pulse Ox 09/03/20 11:52 36.6 C 58 L 19 112/66 98 09/03/20 08:08 36.3 C L 64 20 125/79 92 09/03/20 04:49 36.9 C 64 18 117/73 93 09/03/20 02:33 37.0 C 72 16 155/97 H 96 Laboratory Results Short CBC 09/03/20 Range/Units 06:06 WBC 4.03 L (4.8-10.8) K/uL Hgb 12.9 L (14.0-18.0) g/dL Hct 38.8 L (42-52) % Plt Count 74 L (130-400) K/uL BMP 09/03/20 06:06 Sodium 139 Potassium 3.6 Chloride 107 Carbon Dioxide 26 BUN 10 Creatinine 0.53 L Glucose 83 Calcium 8.6 Medications Administered Current Inpatient Medications Carvedilol (Carvedilol 3.125 Mg Tab) 3.125 mg PO BID [facility] Stop: 10/01/20 01:11 Last Admin: 09/03/20 07:46 Dose: 3.125 mg Documented by: Citalopram Hydrobromide (Citalopram 20 Mg Tab) 20 mg PO DAILY [facility] Stop: 10/01/20 08:59 Last Admin: 09/03/20 07:48 Dose: 20 mg Documented by: Clonidine HCl (Clonidine Hcl 0.1 Mg Tab) 0.1 mg PO Q4H PRN PRN Reason: Hypertension Stop: 10/01/20 01:11 Cyanocobalamin (Cyanocobalamin 500 Mcg Tablet (Vitamin B-12)) 1,000 mcg PO DAILY [facility] Stop: 10/01/20 08:59 Last Admin: 09/03/20 07:45 Dose: 1,000 mcg Documented by: Dextrose (Dextrose 50% 50 Ml Syringe) 25 - 50 ml IV UD PRN; Protocol PRN Reason: Hypoglycemia Protocol Stop: 10/01/20 01:29 Diclofenac Sodium (Diclofenac Sod 1% Gel 100 Gm Tube) 2 gm EXT BID [facility] Stop: 10/01/20 20:59 Last Admin: 09/03/20 07:47 Dose: 2 gm Documented by: Gabapentin (Gabapentin 600 Mg Tab) 600 mg PO Q24H [facility] Stop: 09/04/20 12:01 Glucagon (Glucagon For Inj 1 Mg Vial) 1 mg SQ UD PRN; Protocol PRN Reason: Hypoglycemia Protocol Stop: 10/01/20 01:29 Glucose (Glucose 40% Gel 15 Gm Tube) 15 - 30 gm PO UD PRN; Protocol PRN Reason: Hypoglycemia Protocol Stop: 10/01/20 01:29 Glucose (Glucose 10 Tabs/Tube) 4 - 8 tabs PO UD PRN; Protocol PRN Reason: Hypoglycemia Protocol Stop: 10/01/20 01:29 Hydroxyzine HCl (Hydroxyzine Hcl 10 Mg Tab) 10 mg PO DAILY PRN PRN Reason: Anxiety Stop: 10/01/20 01:11 Folic Acid 1 mg/ Syringe 10 mls @ 5 mls/min IV QAM [facility] Stop: 10/01/20 01:11 Last Admin: 09/03/20 07:49 Dose: 5 mls/min Documented by: Thiamine HCl 100 mg/ Syringe 10 mls @ 2 mls/min IV QAM [facility] Stop: 10/01/20 01:11 Last Admin: 09/03/20 07:49 Dose: 2 mls/min Documented by: Lorazepam (Ativan) 1 mg in 2 mls @ 2 mls/min IV UD PRN; Protocol PRN Reason: EtOH Withdrawl AWSS Score 6,7 Stop: 10/01/20 01:11 Last Admin: 09/03/20 08:03 Dose: 2 mls/min Documented by: Lorazepam (Ativan) 2 mg in 4 mls @ 4 mls/min IV UD PRN; Protocol PRN Reason: EtOH Withdrawl AWSS Score 8,9 Stop: 10/01/20 01:11 Last Admin: 09/03/20 02:49 Dose: 4 mls/min Documented by: Lorazepam (Ativan) 3 mg in 6 mls @ 4 mls/min IV ONCE PRN; Protocol PRN Reason: EtOH Withdrawl AWSS Score >=10 Stop: 10/01/20 01:11 Insulin Aspart (Insulin Aspart 100 Units/Ml 3 Ml Pen) 0 units SC ACHS [facility] Stop: 10/01/20 07:29 Last Admin: 09/03/20 12:00 Dose: 3 units Documented by: Miscellaneous (Carbohydrates For Hypoglycemia ) 15 - 30 gm PO UD PRN PRN Reason: Hypoglycemia Treatment Stop: 10/01/20 01:29 Multivitamins/Minerals (Cerovite Adv Formula Tab) 1 tab PO QAM [facility] Stop: 10/01/20 08:59 Last Admin: 09/03/20 07:45 Dose: 1 tab Documented by: Nitroglycerin (Nitroglycerin Sl 0.4 Mg/Tab Tab) 0.4 mg SL UD PRN PRN Reason: Chest Pain Stop: 10/01/20 01:11 Ondansetron HCl (Ondansetron Inj 2 Mg/Ml 2 Ml Vial) 4 mg IV Q6H PRN PRN Reason: Nausea Stop: 10/01/20 01:11 Pantoprazole Sodium (Pantoprazole 40 Mg Tab) 40 mg PO DAILY [facility] Stop: 10/01/20 08:59 Last Admin: 09/03/20 07:44 Dose: 40 mg Documented by: Pregabalin (Pregabalin 75 Mg Cap) 75 mg PO BID [facility] Stop: 10/01/20 08:59 Last Admin: 09/03/20 07:52 Dose: 75 mg Documented by: Rifaximin (Rifaximin 550 Mg Tablet) 550 mg PO BID [facility] Stop: 10/01/20 08:59 Last Admin: 09/03/20 07:45 Dose: 550 mg Documented by: Trazodone HCl (Trazodone Hcl 50 Mg Tab) 50 mg PO HS PRN PRN Reason: Sleep Stop: 10/01/20 01:11 Vitamin D (Cholecalciferol 1,000 Units 25 Mcg Tab) 1,000 units PO DAILY [facility] Stop: 10/01/20 08:59 Last Admin: 09/03/20 07:44 Dose: 1,000 units Documented by: Warfarin Sodium (Warfarin Sod 4 Mg Tab) 4 mg PO DAILY@1600 [facility] Stop: 10/01/20 15:59 Last Admin: 09/02/20 15:36 Dose: 4 mg Documented by: (1) Alcohol withdrawal syndrome Complication of substance-induced condition: uncomplicated Qualified Code(s): F10.230 - Alcohol dependence with withdrawal, uncomplicated
--- NOTE | 2020-09-03 14:35 | Psychiatric Consultation ---
Date of Consultation September 03, 2020 Impression / Recommendations Impression 49 yo male with hx of Etoh use disorder, significant despite ongoing medical issues, rx of Celexa for presumed unspecified depressive disorder which is likely a factor of his use of ETOH (a depressant). He is currently experiencing some degree of acute withdrawal delirium during monitored detox. I would not adjust Celexa in this setting. No apparent indication for inpatient psychiatric care. The most appropriate disposition would be inpatient rehab. He states [facility] if accepted. Rehab would secure aftercare for ongoing therapy and medication monitoring. Liaison to follow. Risk Factors Assessment Do You Have Access To A Gun?: No Psych History Identifying Data 49 yo male from [place] who was admit for ETOH detox, expressed concerns about depression, consult by Dr. Vera. Chief Complaint "I don't know who you are or why you are here". History of Present Illness Patient was difficult to arouse as ongoing detox, confused as to nature of consult and whether or not he indeed takes Celexa as outpatient. Apparently was clearer last pm in discussion with liaison as endorsed not being able to tolerate crying when no intoxicated and drinking because he holds "everything in". Sleep is broken, appetite "I can eat", low energy, concentration is currently very poor on med floor. Short term memory deficits apparently present prior to admission. Told a staff "I keep dumping booze into the hole in my heart". Unclear if his anxiety and feeling like "a wreck" is truly anxiety or subjective withdrawal. He was not able to provide any meaningful history and required frequent redirection. Denied suicidal thoughts but hx of chronic passive SI, no specific intent or plan and reported he would not act on these thoughts if recurred due to his children. Drinks 10-12 beers/day for 5 years. note PMHx and family hx guidry not working in document, patient has hx of DVT with IVC filter on anticoag, HTN, high cholesterol; father age 49 of stroke Past Psychiatric History Previous Psych History: saw a therapist as a child Current Psychiatric Diagnosis: unspecified depression Outpatient Services: none currently Previous Psych Admissions: denied Do You Have Access To A Gun?: No History of Previous Suicide Attempt: No Allergies Allergy/AdvReac Type Severity Reaction Status Date / Time No Known Allergies Allergy Unverified 08/31/20 22:29 Home Medications Home Medications Medication Instructions Recorded Confirmed Type acyclovir 200 mg PO UD 08/31/20 08/31/20 History carvedilol [Coreg] 3.125 mg PO BID 08/31/20 08/31/20 History chlordiazepoxide HCl 25 mg PO Q4 PRN 08/31/20 08/31/20 History cholecalciferol (vitamin D3) 125 mcg PO DAILY 08/31/20 08/31/20 History [Vitamin D3] citalopram 20 mg PO DAILY 08/31/20 08/31/20 History cyanocobalamin (vitamin B-12) 0 mcg PO DAILY 08/31/20 08/31/20 History [Vitamin B-12] folic acid 1 mg PO DAILY 08/31/20 08/31/20 History hydroxyzine HCl 10 mg PO DAILY PRN 08/31/20 08/31/20 History metformin 1,000 mg PO BID 08/31/20 08/31/20 History pantoprazole 40 mg PO DAILY 08/31/20 08/31/20 History pregabalin 75 mg PO BID 08/31/20 08/31/20 History rifaximin [Xifaxan] 550 mg PO BID 08/31/20 08/31/20 History thiamine HCl (vitamin B1) [Vitamin 100 mg PO DAILY 08/31/20 08/31/20 History B-1] trazodone 50 mg PO HS PRN 08/31/20 08/31/20 History warfarin 2 mg PO DAILY 08/31/20 08/31/20 History Family History father ETOH, mother has a history of attempting OD on aspirin. Substance Abuse History etoh as above, MJ occasionally Personal History Living Arrangements: Home (with of 3 years) Born In: [place] Highest Grade Completed: Vocational Training ([employer]) Employment Status: Disabled (past 3 years, prior machine shop) Marital Status: (2nd ) Number Of Children: 3 girls ages 15, 16, and 28 Beliefs That Will Affect Care: None History of Legal Problems: denied Psychological Trauma History Comment: denied Patient History Family History (Updated 09/03/20 @ 14:29 by Alka Garcia MD) Father Stroke Social History Smoking Status: Never smoker Hx Alcohol Use: Yes Alcohol type: beer Hx Substance Use: No Preferred Language: Portuguese Communication Ability: Effective Beliefs That Will Affect Care: None marital status: Current Living Situation: Spouse How many Children do You have: 0 Other Information That Helps Us Care for You: No Feels Safe at Home: Yes Assistive Devices: Cane Physical Exam Psychiatric: Orientation: alert and oriented to person Apperance: + disheveled Eye Contact: + poor eye contact Motor Behavior: no abnormal motor movements slurred speech Affect: + depressed affect patient is unable to describe his mood Thought Process: + circumstantial thought process Thought Content: no delusions Suicidal Thoughts: denies suicidal thoughts Homicidal Thoughts: denies homicidal thoughts Hallucinations: no auditory hallucinations and no visual hallucinations Cognition: + attention not intact Insight: + poor insight Judgement: + poor judgement Vital Signs (Past 24 Hours): Last Vital Signs Temp 36.6 C 09/03/20 11:52 Pulse 58 L 09/03/20 11:52 Resp 19 09/03/20 11:52 BP 112/66 09/03/20 11:52 Pulse Ox 98 09/03/20 11:52 Results & Data ([facility]) Medications Administered Carvedilol (Carvedilol 3.125 Mg Tab) 3.125 mg PO BID [facility] Stop: 10/01/20 01:11 Last Admin: 09/03/20 07:46 Dose: 3.125 mg Documented by: [id number] Admin: 09/02/20 20:09 Dose: 3.125 mg Documented by: [id number] Admin: 09/02/20 07:47 Dose: 3.125 mg Documented by: [id number] Admin: 09/01/20 21:30 Dose: 3.125 mg Documented by: [id number] Admin: 09/01/20 08:48 Dose: 3.125 mg Documented by: [id number] Admin: 09/01/20 02:51 Dose: 3.125 mg Documented by: [id number] Citalopram Hydrobromide (Citalopram 20 Mg Tab) 20 mg PO DAILY [facility] Stop: 10/01/20 08:59 Last Admin: 09/03/20 07:48 Dose: 20 mg Documented by: [id number] Admin: 09/02/20 07:46 Dose: 20 mg Documented by: [id number] Admin: 09/01/20 08:49 Dose: 20 mg Documented by: [id number] Cyanocobalamin (Cyanocobalamin 500 Mcg Tablet (Vitamin B-12)) 1,000 mcg PO DAILY [facility] Stop: 10/01/20 08:59 Last Admin: 09/03/20 07:45 Dose: 1,000 mcg Documented by: [id number] Admin: 09/02/20 07:49 Dose: 1,000 mcg Documented by: [id number] Admin: 09/01/20 08:49 Dose: 1,000 mcg Documented by: [id number] Diclofenac Sodium (Diclofenac Sod 1% Gel 100 Gm Tube) 2 gm EXT BID [facility] Stop: 10/01/20 20:59 Last Admin: 09/03/20 07:47 Dose: 2 gm Documented by: [id number] Admin: 09/02/20 20:12 Dose: 2 gm Documented by: [id number] Admin: 09/02/20 07:49 Dose: Not Given Documented by: [id number] Admin: 09/01/20 21:31 Dose: 2 gm Documented by: [id number] Folic Acid 1 mg/ Syringe 10 mls @ 5 mls/min IV QAM [facility] Stop: 10/01/20 01:11 Last Admin: 09/03/20 07:49 Dose: 5 mls/min Documented by: [id number] Admin: 09/02/20 07:50 Dose: 5 mls/min Documented by: [id number] Admin: 09/01/20 08:51 Dose: 5 mls/min Documented by: [id number] Admin: 09/01/20 02:49 Dose: 5 mls/min Documented by: [id number] Thiamine HCl 100 mg/ Syringe 10 mls @ 2 mls/min IV QAM [facility] Stop: 10/01/20 01:11 Last Admin: 09/03/20 07:49 Dose: 2 mls/min Documented by: [id number] Admin: 09/02/20 07:51 Dose: 2 mls/min Documented by: [id number] Admin: 09/01/20 08:51 Dose: 2 mls/min Documented by: [id number] Admin: 09/01/20 02:49 Dose: 2 mls/min Documented by: [id number] Lorazepam (Ativan) 1 mg in 2 mls @ 2 mls/min IV UD PRN; Protocol PRN Reason: EtOH Withdrawl AWSS Score 6,7 Stop: 10/01/20 01:11 Last Admin: 09/03/20 08:03 Dose: 2 mls/min Documented by: [id number] Admin: 09/02/20 17:44 Dose: 2 mls/min Documented by: [id number] Admin: 10/04/20 12:34 Dose: 2 mls/min Documented by: [id number] Admin: 09/02/20 09:21 Dose: 2 mls/min Documented by: [id number] Admin: 09/02/20 09:09 Dose: 2 mls/min Documented by: [id number] Admin: 09/01/20 19:28 Dose: 2 mls/min Documented by: [id number] Admin: 09/01/20 12:21 Dose: 2 mls/min Documented by: [id number] Lorazepam (Ativan) 2 mg in 4 mls @ 4 mls/min IV UD PRN; Protocol PRN Reason: EtOH Withdrawl AWSS Score 8,9 Stop: 10/01/20 01:11 Last Admin: 09/03/20 02:49 Dose: 4 mls/min Documented by: [id number] Admin: 09/03/20 00:22 Dose: 4 mls/min Documented by: [id number] Admin: 09/02/20 20:33 Dose: 4 mls/min Documented by: [id number] Admin: 09/02/20 16:28 Dose: 4 mls/min Documented by: [id number] Insulin Aspart (Insulin Aspart 100 Units/Ml 3 Ml Pen) 0 units SC ACHS [facility] Stop: 10/01/20 07:29 Last Admin: 09/03/20 12:00 Dose: 3 units Documented by: [id number] Cosigned by: [id number] Admin: 09/03/20 08:06 Dose: 4 units Documented by: [id number] Cosigned by: [id number] Admin: 09/02/20 23:02 Dose: Not Given Documented by: [id number] Cosigned by: [id number] Admin: 09/02/20 16:32 Dose: Not Given Documented by: [id number] Cosigned by: [id number] Admin: 09/02/20 12:26 Dose: 2 units Documented by: [id number] Cosigned by: [id number] Admin: 09/02/20 08:00 Dose: Not Given Documented by: [id number] Cosigned by: [id number] Admin: 09/01/20 21:49 Dose: Not Given Documented by: [id number] Cosigned by: [id number] Admin: 09/01/20 17:05 Dose: 1 units Documented by: [id number] Cosigned by: [id number] Admin: 09/01/20 12:14 Dose: 2 units Documented by: [id number] Cosigned by: [id number] Admin: 09/01/20 08:50 Dose: Not Given Documented by: [id number] Cosigned by: [id number] Multivitamins/Minerals (Cerovite Adv Formula Tab) 1 tab PO QAM [facility] Stop: 10/01/20 08:59 Last Admin: 09/03/20 07:45 Dose: 1 tab Documented by: [id number] Admin: 09/02/20 07:51 Dose: 1 tab Documented by: [id number] Admin: 09/01/20 08:50 Dose: 1 tab Documented by: [id number] Pantoprazole Sodium (Pantoprazole 40 Mg Tab) 40 mg PO DAILY [facility] Stop: 10/01/20 08:59 Last Admin: 09/03/20 07:44 Dose: 40 mg Documented by: [id number] Admin: 09/02/20 07:49 Dose: 40 mg Documented by: [id number] Admin: 09/01/20 08:50 Dose: 40 mg Documented by: [id number] Pregabalin (Pregabalin 75 Mg Cap) 75 mg PO BID [facility] Stop: 10/01/20 08:59 Last Admin: 09/03/20 07:52 Dose: 75 mg Documented by: [id number] Admin: 09/02/20 20:33 Dose: 75 mg Documented by: [id number] Admin: 09/02/20 07:46 Dose: 75 mg Documented by: [id number] Admin: 09/01/20 21:35 Dose: 75 mg Documented by: [id number] Admin: 09/01/20 08:48 Dose: 75 mg Documented by: [id number] Rifaximin (Rifaximin 550 Mg Tablet) 550 mg PO BID [facility] Stop: 10/01/20 08:59 Last Admin: 09/03/20 07:45 Dose: 550 mg Documented by: [id number] Admin: 09/02/20 20:12 Dose: 550 mg Documented by: [id number] Admin: 09/02/20 07:47 Dose: 550 mg Documented by: [id number] Admin: 09/01/20 21:30 Dose: 550 mg Documented by: [id number] Admin: 09/01/20 08:51 Dose: 550 mg Documented by: [id number] Vitamin D (Cholecalciferol 1,000 Units 25 Mcg Tab) 1,000 units PO DAILY [facility] Stop: 10/01/20 08:59 Last Admin: 09/03/20 07:44 Dose: 1,000 units Documented by: [id number] Admin: 09/02/20 07:48 Dose: 1,000 units Documented by: [id number] Admin: 09/01/20 08:49 Dose: 1,000 units Documented by: [id number] Warfarin Sodium (Warfarin Sod 4 Mg Tab) 4 mg PO DAILY@1600 [facility] Stop: 10/01/20 15:59 Last Admin: 09/02/20 15:36 Dose: 4 mg Documented by: [id number] Admin: 09/01/20 16:14 Dose: 4 mg Documented by: [id number] Coding Level of Care Code [address] [facility] Intl Hosp Care Lvl 2
[2020-09-03] MEDS: hydrOXYzine HCl 10 MG TAB PO PRN (15:04)
[2020-09-03] MEDS ORDERED: GADOBUTROL 65ML VIAL IV ONE (15:58)
--- NOTE | 2020-09-03 16:08 | Magnetic Resonance Report ---
MRI OF THE BRAIN WITHOUT AND WITH IV CONTRAST CLINICAL HISTORY: Dysphagia, unsteady gait, impaired memory. COMPARISON STUDY: Noncontrast head CT dated 08/31/2020 TECHNIQUE: MRI of the brain was performed from the vertex to the skull base utilizing various T1 and T2 weighted sequences. Following the IV administration of 12.5 mL of Gadavist contrast, additional en hanced images were obtained. FINDINGS: Sagittal T1, axial diffusion, proton density and T2 weighted axial, coronal FLAIR, and pre and post a xial T1-weighted images were acquired. These were supplemented with post gadolinium coronal T1 weight ed images. No intra or extra-axial mass lesions are visualized. Axial diffusion-weighted images reveal no evidence of acute or subacute infarction. There is no evidence of ventricular dilatation. Proton density T2-weighted and FLAIR images reveal cerebellar vermin atrophy. There are a few punctat e foci of increased FLAIR signal within the white matter likely on a small vessel basis There are no abnormal flow voids. There is no evidence of pathologic enhancement. IMPRESSION: 1. No acute intracranial findings 2. No evidence of acute or subacute infarction 3. No evidence of intracranial mass 4. Cerebellar vermis atrophy. ACT 112: Negative or not required by law. Electronically signed by: Joshua Tapia M.D. 09/03/2020 4:06 PM
[2020-09-03] MEDS: WARFARIN SOD 4 MG TAB PO SCH (17:15)
[2020-09-04] MEDS: LORazepam 2 MG/4 ML VIAL IV PRN ×3 (03:06→15:37)
[2020-09-04] MEDS: LORazepam 1 MG/2 ML VIAL IV PRN ×2 (06:31→20:21)
[2020-09-04 07:37] LABS: INR 1.4 (0.9-1.1); Prothrombin Time 14.2 Seconds (9.0-12.0)
[2020-09-04] MEDS: RIFAXIMIN 550 MG TABLET PO SCH ×2 (07:56→20:23)
[2020-09-04] MEDS: CHOLECALCIFEROL 1,000 UNITS 25 MCG TAB PO SCH (07:56)
[2020-09-04] MEDS: THIAMINE HCL 100 MG in SYRINGE 9 ML IV SCH (07:56)
[2020-09-04] MEDS: FOLIC ACID 1 MG in SYRINGE 9.8 ML IV SCH (07:56)
[2020-09-04] MEDS: CYANOCOBALAMIN 500 MCG TABLET (VITAMIN B-12) PO SCH (07:57)
[2020-09-04] MEDS: PANTOprazole 40 MG TAB PO SCH (07:57)
[2020-09-04] MEDS: carvediloL 3.125 MG TAB PO SCH ×2 (07:58→20:23)
[2020-09-04] MEDS: CEROVITE ADV FORMULA TAB PO SCH (07:58)
[2020-09-04] MEDS: CITALOPRAM 20 MG TAB PO SCH (07:58)
[2020-09-04] MEDS: INSULIN ASPART 100 UNITS/ML 3 ML PEN SC SCH ×4 (07:59→20:03)
[2020-09-04] MEDS: DICLOFENAC SOD 1% GEL 100 GM TUBE EXT SCH ×2 (07:59→20:23)
[2020-09-04] MEDS: PREGABALIN 75 MG CAP PO SCH ×2 (08:04→20:22)
[2020-09-04] MEDS ORDERED: GABAPENTIN 600 MG TAB PO SCH (12:00)
[2020-09-04] MEDS: WARFARIN SOD 4 MG TAB PO SCH (15:37)
--- NOTE | 2020-09-04 17:09 | Hospitalist Progress Note ---
Date of Service September 04, 2020 Assessment & Plan (1) Alcohol withdrawal syndrome: Drinks about 10-20 beers a day and has been doing for a long time Was very anxious and stiff at presentation Wanted to have detox in a facility Has been on withdrawal protocol Remains anxious and has minimal tremors on outstretched hands More anxious today and has been crying Has unsteadiness and increasing tremor We will continue current management of withdrawal symptoms Has been having more withdrawal symptoms and will need increasing dose of Ativan History of unsteady gait associated with dysphasia and memory impairment We will get an MRI with and without contrast to rule out any intracranial path ology MRI did show 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 Unsteady gait is due in part due to cerebellar informal atrophy Will continue PT and OT (2) Thrombocytopenia: Secondary to alcoholism (3) Back pain: History of chronic back pain Continue home medications (4) Diabetes type 2, controlled: Globin A1c is 5.3 (5) MTHFR mutation: History of MTHFR mutation and has been on Coumadin Prior history of DVT and pulmonary embolism INR remains subtherapeutic at 1.5 Will give increased dose of Coumadin today and monitor INR-therapeutic Continue higher dose of Coumadin (6) History of deep venous thrombosis or pulmonary embolus: (7) Hypertension: Blood pressure seems to be controlled (8) Hyperlipidemia: (9) Adjustment disorder with anxious mood: Continue current antidepressant Has been on Celexa To be more depressed and has been crying Psychiatry consulted DVT prophylaxis On Coumadin INR remains subtherapeutic Increase Coumadin to 5 mg-go slow on INR because of thrombocytopenia CODE STATUS Full PT and OT evaluation Will need inpatient alcohol rehab program placement Admission and Anticipated Discharge Date Admission Date: September 01, 2020 Subjective 09/01/2020 He is a 49-year-old obese male with significant past medical history of alcoholism with other medical conditions as mentioned in H&P was admitted with withdrawal symptoms He has been drinking more and having problem with ambulation Wants to have detox in an inpatient facility 09/02/2020 Patient was seen and examined in telemetry unit He complains to have severe depression and is craving for alcohol Minimal tremor with outstretched hands denies any palpitation 09/03/2020 The patient was seen and examined in the telemetry unit He remains very shaky, unsteady and anxious Denies any nausea and or vomiting 09/04/2020 Patient was seen and examined in telemetry unit He complains to have palpitation and anxiety but does not have any significant tremors on outstretched hands He still has a staggering gait Denies any other significant symptoms Review of Systems Review of Systems: All systems reviewed and are unremarkable except as noted below Constitutional: + fatigue, + malaise, + weakness and + weight gain Neurologic: + unsteadiness, + generalized weakness and + tremor(s); no confusion and no memory loss Physical Exam Physical Exam: Sitting at the edge of the bed with extreme anxiety Constitutional: well developed, well nourished, + ill appearing, + obese and + altered mental status; no acute distress Eyes: PERRL, conjunctivae normal, anicteric sclerae ENMT: external ear and nose normal, oropharynx normal Neck: trachea midline, no thyromegaly Respiratory: normal respiratory effort; no respiratory distress Auscult ation: lungs clear to auscultation bilaterally Cardiovascular: Rate/Rhythm: regular rate and regular rhythm Heart Sounds: no murmur Extremities: + edema Gastrointestinal (Abdomen): Inspection/Auscultation: abdomen normal to in spection; abdomen not distended Percussion/Palpation: abdomen soft Musculoskeletal: No acute arthritis in any joint Neurologic: moves all extremities; no focal motor deficits Speech / Cognition: normal speech Unsteady gait and generalized weakness Psychiatric: A+Ox3, euthymic affect Orientation: alert and oriented x 3 Affect: + depressed affect Mood: + depressed mood Insight: good insight Lymphatic: no cervical or axillary lymphadenopathy Results & Data Results & Data ([facility]) Vital Signs (Past 12 Hours) Vital Signs Temp Pulse Resp BP BP Pulse Ox 09/04/20 15:33 36.5 C 85 20 124/79 96 09/04/20 11:54 36.6 C 67 18 122/83 96 09/04/20 08:09 36.7 C 74 18 131/88 98 Medications Administered Current Inpatient Medications Carvedilol (Carvedilol 3.125 Mg Tab) 3.125 mg PO BID [facility]IO Stop: 10/01/20 01:11 Last Admin: 09/04/20 07:58 Dose: 3.125 mg Documented by: Citalopram Hydrobromide (Citalopram 20 Mg Tab) 20 mg PO DAILY [facility] Stop: 10/01/20 08:59 Last Admin: 09/04/20 07:58 Dose: 20 mg Documented by: Clonidine HCl (Clonidine Hcl 0.1 Mg Tab) 0.1 mg PO Q4H PRN PRN Reason: Hypertension Stop: 10/01/20 01:11 Cyanocobalamin (Cyanocobalamin 500 Mcg Tablet (Vitamin B-12)) 1,000 mcg PO DAILY [facility] Stop: 10/01/20 08:59 Last Admin: 09/04/20 07:57 Dose: 1,000 mcg Documented by: Dextrose (Dextrose 50% 50 Ml Syringe) 25 - 50 ml IV UD PRN; Protocol PRN Reason: Hypoglycemia Protocol Stop: 10/01/20 01:29 Diclofenac Sodium (Diclofenac Sod 1% Gel 100 Gm Tube) 2 gm EXT BID LUCIO Stop: 10/01/20 20:59 Last Admin: 09/04/20 07:59 Dose: 2 gm Documented by: Glucagon (Glucagon For Inj 1 Mg Vial) 1 mg SQ UD PRN; Protocol PRN Reason: Hypoglycemia Protocol Stop: 10/01/20 01:29 Glucose (Glucose 40% Gel 15 Gm Tube) 15 - 30 gm PO UD PRN; Protocol PRN Reason: Hypoglycemia Protocol Stop: 10/01/20 01:29 Glucose (Glucose 10 Tabs/Tube) 4 - 8 tabs PO UD PRN; Protocol PRN Reason: Hypoglycemia Protocol Stop: 10/01/20 01:29 Hydroxyzine HCl (Hydroxyzine Hcl 10 Mg Tab) 10 mg PO DAILY PRN PRN Reason: Anxiety Stop: 10/01/20 01:11 Last Admin: 09/03/20 15:04 Dose: 10 mg Documented by: Folic Acid 1 mg/ Syringe 10 mls @ 5 mls/min IV QAM [facility]IO Stop: 10/01/20 01:11 Last Admin: 09/04/20 07:56 Dose: 5 mls/min Documented by: Thiamine HCl 100 mg/ Syringe 10 mls @ 2 mls/min IV QAM [facility]IO Stop: 10/01/20 01:11 Last Admin: 09/04/20 07:56 Dose: 2 mls/min Documented by: Lorazepam (Ativan) 1 mg in 2 mls @ 2 mls/min IV UD PRN; Protocol PRN Reason: EtOH Withdrawl AWSS Score 6,7 Stop: 10/01/20 01:11 Last Admin: 09/04/20 06:31 Dose: 2 mls/min Documented by: Lorazepam (Ativan) 2 mg in 4 mls @ 4 mls/min IV UD PRN; Protocol PRN Reason: EtOH Withdrawl AWSS Score 8,9 Stop: 10/01/20 01:11 Last Admin: 09/04/20 15:37 Dose: 4 mls/min Documented by: Lorazepam (Ativan) 3 mg in 6 mls @ 4 mls/min IV ONCE PRN; Protocol PRN Reason: EtOH Withdrawl AWSS Score >=10 Stop: 10/01/20 01:11 Insulin Aspart (Insulin Aspart 100 Units/Ml 3 Ml Pen) 0 units SC ACHS [facility] Stop: 10/01/20 07:29 Last Admin: 09/04/20 16:38 Dose: 4 units Documented by: Miscellaneous (Carbohydrates For Hypoglycemia ) 15 - 30 gm PO UD PRN PRN Reason: Hypoglycemia Treatment Stop: 10/01/20 01:29 Multivitamins/Minerals (Cerovite Adv Formula Tab) 1 tab PO QAM [facility] Stop: 10/01/20 08:59 Last Admin: 09/04/20 07:58 Dose: 1 tab Documented by: Nitroglycerin (Nitroglycerin Sl 0.4 Mg/Tab Tab) 0.4 mg SL UD PRN PRN Reason: Chest Pain Stop: 10/01/20 01:11 Ondansetron HCl (Ondansetron Inj 2 Mg/Ml 2 Ml Vial) 4 mg IV Q6H PRN PRN Reason: Nausea Stop: 10/01/20 01:11 Pantoprazole Sodium (Pantoprazole 40 Mg Tab) 40 mg PO DAILY [facility] Stop: 10/01/20 08:59 Last Admin: 09/04/20 07:57 Dose: 40 mg Documented by: Pregabalin (Pregabalin 75 Mg Cap) 75 mg PO BID [facility] Stop: 10/01/20 08:59 Last Admin: 09/04/20 08:04 Dose: 75 mg Documented by: Rifaximin (Rifaximin 550 Mg Tablet) 550 mg PO BID [facility] Stop: 10/01/20 08:59 Last Admin: 09/04/20 07:56 Dose: 550 mg Documented by: Trazodone HCl (Trazodone Hcl 50 Mg Tab) 50 mg PO HS PRN PRN Reason: Sleep Stop: 10/01/20 01:11 Vitamin D (Cholecalciferol 1,000 Units 25 Mcg Tab) 1,000 units PO DAILY [facility] Stop: 10/01/20 08:59 Last Admin: 09/04/20 07:56 Dose: 1,000 units Documented by: Warfarin Sodium (Warfarin Sod 4 Mg Tab) 4 mg PO DAILY@1600 [facility] Stop: 10/01/20 15:59 Last Admin: 09/04/20 15:37 Dose: 4 mg Documented by: (1) Alcohol withdrawal syndrome Complication of substance-induced condition: uncomplicated Qualified Code(s): F10.230 - Alcohol dependence with withdrawal, uncomplicated
[2020-09-04] MEDS ORDERED: WARFARIN SOD 2 MG TAB PO ONE (20:00)
[2020-09-04] MEDS ORDERED: TRAMADOL HCL 50 MG TABLET PO STA (21:09)
[2020-09-05] MEDS: carvediloL 3.125 MG TAB PO SCH ×2 (08:14→21:07)
[2020-09-05] MEDS: CEROVITE ADV FORMULA TAB PO SCH (08:14)
[2020-09-05] MEDS: CITALOPRAM 20 MG TAB PO SCH (08:14)
[2020-09-05] MEDS: PANTOprazole 40 MG TAB PO SCH (08:14)
[2020-09-05] MEDS: CYANOCOBALAMIN 500 MCG TABLET (VITAMIN B-12) PO SCH (08:14)
[2020-09-05] MEDS: RIFAXIMIN 550 MG TABLET PO SCH ×2 (08:15→21:08)
[2020-09-05] MEDS: hydrOXYzine HCl 10 MG TAB PO PRN (08:15)
[2020-09-05] MEDS: CHOLECALCIFEROL 1,000 UNITS 25 MCG TAB PO SCH (08:15)
[2020-09-05] MEDS: INSULIN ASPART 100 UNITS/ML 3 ML PEN SC SCH ×4 (08:21→21:08)
[2020-09-05 08:49] LABS: INR 1.3 (0.9-1.1)
--- NOTE | 2020-09-05 08:57 | Hospitalist Progress Note ---
Date of Service September 05, 2020 Assessment & Plan (1) Alcohol withdrawal syndrome: Drinks about 10-20 beers a day and has been doing for a long time Was very anxious and stiff at presentation Wanted to have detox in a facility Has been on withdrawal protocol Remains anxious and has minimal tremors on outstretched hands, has been crying Has unsteadiness and increasing tremor We will continue current management of withdrawal symptoms Has been having more withdrawal symptoms and will need increasing dose of Ativan History of unsteady gait associated with dysphasia and memory impairment Obtained MRI with and without contrast to rule out any intracranial pathology MRI did show 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 Unsteady gait is due in part due to cerebellar atrophy Will continue PT and OT (2) Thrombocytopenia: Secondary to alcoholism Pancytopenia due to alcoholism -Continue to monitor (3) Back pain: History of chronic back pain Continue home medications (4) Diabetes type 2, controlled: Globin A1c is 5.3 (5) MTHFR mutation: History of MTHFR mutation and has been on Coumadin Prior history of DVT and pulmonary embolism INR remains subtherapeutic Will give increased dose of Coumadin today and monitor INR-therapeutic Continue higher dose of Coumadin (6) History of deep venous thrombosis or pulmonary embolus: (7) Hypertension: Blood pressure seems to be controlled (8) Hyperlipidemia: (9) Adjustment disorder with anxious mood: Continue current antidepressant Has been on Celexa To be more depressed and has been crying Psychiatry consulted DVT prophylaxis On Coumadin INR remains subtherapeutic Increase Coumadin to 5 mg-go slow on INR because of thrombocytopenia CODE STATUS Full PT and OT evaluation Will need inpatient alcohol rehab program placement, case management aware Admission and Anticipated Discharge Date Admission Date: September 01, 2020 Subjective Patient is lying in bed, in no distress, reports that he feels very anxious, and nervous about going to the rehab. Counseled him, and reinforced that this is the best decision for him. Patient does not have fevers but he does feel sweaty. Does not have shortness of breath or chest pain. Review of Systems Review of Systems: All systems reviewed & are unremarkable except as noted in HPI & below Constitutional: + chills; no fever Respiratory: no cough and no dyspnea Cardiovascular: no chest pain and no palpitations Gastrointestinal: no abdominal pain and no vomiting Physical Exam Physical Exam: Physical Exam: Middle-aged male, laying in bed, feeling anxious Constitutional: well developed, well nourished, + obese, anxious, but in no acute distress Eyes: PERRL, EOMI, conjunctivae normal, anicteric sclerae ENMT: external ear and nose normal, oropharynx normal Neck: trachea midline, no thyromegaly Respiratory: normal respiratory effort; no respiratory distress Auscultation: lungs clear to auscultation bilaterally Cardiovascular: Rate/Rhythm: regular rate and regular rhythm Heart Sounds: no murmur Extremities: + mild edema Gastrointestinal (Abdomen): Inspection/Auscultation: abdomen normal to inspection; abdomen not distended Percussion/Palpation: abdomen soft Musculoskeletal: No acute arthritis in any joint Neurologic: moves all extremities; no focal motor deficits Speech / Cognition: normal speech Unsteady gait and generalized weakness Psychiatric: A+Ox3, euthymic affect Orientation: alert and oriented x 3 Affect: + depressed affect Mood: + depressed mood Insight: good insight Skin: Warm, dry, well-perfused Results & Data Results & Data ([facility]) Vital Signs (Past 12 Hours) Vital Signs Temp Pulse Resp BP BP Pulse Ox 09/05/20 07:52 36.7 C 72 18 120/83 96 09/05/20 03:33 36.4 C L 66 16 131/84 97 09/04/20 23:14 36.6 C 65 16 100/66 94 Laboratory Results 09/05/20 09/05/20 09/05/20 Range/Units 08:01 08:01 07:40 PT 14.0 H (9.0-12.0) Seconds INR 1.3 H (0.9-1.1) Sodium 141 (136-145) mmol/L Potassium 3.9 (3.5-5.1) mmol/L Chloride 109 H (98-107) mmol/L Carbon Dioxide 26 (21-32) mmol/L Anion Gap 7.0 (3-11) BUN 11 (7-18) mg/dl Creatinine 0.64 (0.6-1.4) mg/dl Est Cr Clr Drug Dosing 196.3 ml/min Est GFR ( Amer) 135.1 Est GFR (Non-Af Amer) 116.6 BUN/Creatinine Ratio 17.5 (10-20) Glucose 88 (70-99) mg/dl POC Glucose 89 (70-99) mg/dl Calcium 9.1 (8.5-10.1) mg/dl 09/04/20 09/04/20 09/04/20 Range/Units 19:28 15:53 11:27 PT (9.0-12.0) Seconds INR (0.9-1.1) Sodium (136-145) mmol/L Potassium (3.5-5.1) mmol/L Chloride (98-107) mmol/L Carbon Dioxide (21-32) mmol/L Anion Gap (3-11) BUN (7-18) mg/dl Creatinine (0.6-1.4) mg/dl Est Cr Clr Drug Dosing ml/min Est GFR ( Amer) Est GFR (Non-Af Amer) BUN/Creatinine Ratio (-20) Glucose (70-99) mg/dl POC Glucose 117 H 187 H 108 H (70-99) mg/dl Calcium (8.5-10.1) mg/dl Medications Administered Current Inpatient Medications Carvedilol (Carvedilol 3.125 Mg Tab) 3.125 mg PO BID [facility] Stop: 10/01/20 01:11 Last Admin: 09/05/20 08:14 Dose: 3.125 mg Documented by: Citalopram Hydrobromide (Citalopram 20 Mg Tab) 20 mg PO DAILY [facility] Stop: 10/01/20 08:59 Last Admin: 09/05/20 08:14 Dose: 20 mg Documented by: Clonidine HCl (Clonidine Hcl 0.1 Mg Tab) 0.1 mg PO Q4H PRN PRN Reason: Hypertension Stop: 10/01/20 01:11 Cyanocobalamin (Cyanocobalamin 500 Mcg Tablet (Vitamin B-12)) 1,000 mcg PO DAILY [facility] Stop: 10/01/20 08:59 Last Admin: 09/05/20 08:14 Dose: 1,000 mcg Documented by: Dextrose (Dextrose 50% 50 Ml Syringe) 25 - 50 ml IV UD PRN; Protocol PRN Reason: Hypoglycemia Protocol Stop: 10/01/20 01:29 Diclofenac Sodium (Diclofenac Sod 1% Gel 100 Gm Tube) 2 gm EXT BID [facility]IO Stop: 10/01/20 20:59 Last Admin: 09/04/20 20:23 Dose: 2 gm Documented by: Glucagon (Glucagon For Inj 1 Mg Vial) 1 mg SQ UD PRN; Protocol PRN Reason: Hypoglycemia Protocol Stop: 10/01/20 01:29 Glucose (Glucose 40% Gel 15 Gm Tube) 15 - 30 gm PO UD PRN; Protocol PRN Reason: Hypoglycemia Protocol Stop: 10/01/20 01:29 Glucose (Glucose 10 Tabs/Tube) 4 - 8 tabs PO UD PRN; Protocol PRN Reason: Hypoglycemia Protocol Stop: 10/01/20 01:29 Hydroxyzine HCl (Hydroxyzine Hcl 10 Mg Tab) 10 mg PO DAILY PRN PRN Reason: Anxiety Stop: 10/01/20 01:11 Last Admin: 09/05/20 08:15 Dose: 10 mg Documented by: Folic Acid 1 mg/ Syringe 10 mls @ 5 mls/min IV QAM [facility] Stop: 10/01/20 01:11 Last Admin: 09/04/20 07:56 Dose: 5 mls/min Documented by: Thiamine HCl 100 mg/ Syringe 10 mls @ 2 mls/min IV QAM [facility] Stop: 10/01/20 01:11 Last Admin: 09/04/20 07:56 Dose: 2 mls/min Documented by: Lorazepam (Ativan) 1 mg in 2 mls @ 2 mls/min IV UD PRN; Protocol PRN Reason: EtOH Withdrawl AWSS Score 6,7 Stop: 10/01/20 01:11 Last Admin: 09/04/20 20:21 Dose: 2 mls/min Documented by: Lorazepam (Ativan) 2 mg in 4 mls @ 4 mls/min IV UD PRN; Protocol PRN Reason: EtOH Withdrawl AWSS Score 8,9 Stop: 10/01/20 01:11 Last Admin: 09/04/20 15:37 Dose: 4 mls/min Documented by: Lorazepam (Ativan) 3 mg in 6 mls @ 4 mls/min IV ONCE PRN; Protocol PRN Reason: EtOH Withdrawl AWSS Score >=10 Stop: 10/01/20 01:11 Insulin Aspart (Insulin Aspart 100 Units/Ml 3 Ml Pen) 0 units SC ACHS [facility] Stop: 10/01/20 07:29 Last Admin: 09/05/20 08:21 Dose: 4 units Documented by: Miscellaneous (Carbohydrates For Hypoglycemia ) 15 - 30 gm PO UD PRN PRN Reason: Hypoglycemia Treatment Stop: 10/01/20 01:29 Multivitamins/Minerals (Cerovite Adv Formula Tab) 1 tab PO QAM [facility] Stop: 10/01/20 08:59 Last Admin: 09/05/20 08:14 Dose: 1 tab Documented by: Nitroglycerin (Nitroglycerin Sl 0.4 Mg/Tab Tab) 0.4 mg SL UD PRN PRN Reason: Chest Pain Stop: 10/01/20 01:11 Ondansetron HCl (Ondansetron Inj 2 Mg/Ml 2 Ml Vial) 4 mg IV Q6H PRN PRN Reason: Nausea Stop: 10/01/20 01:11 Pantoprazole Sodium (Pantoprazole 40 Mg Tab) 40 mg PO DAILY [facility] Stop: 10/01/20 08:59 Last Admin: 09/05/20 08:14 Dose: 40 mg Documented by: Pregabalin (Pregabalin 75 Mg Cap) 75 mg PO BID [facility] Stop: 10/01/20 08:59 Last Admin: 09/04/20 20:22 Dose: 75 mg Documented by: Rifaximin (Rifaximin 550 Mg Tablet) 550 mg PO BID [facility] Stop: 10/01/20 08:59 Last Admin: 09/05/20 08:15 Dose: 550 mg Documented by: Trazodone HCl (Trazodone Hcl 50 Mg Tab) 50 mg PO HS PRN PRN Reason: Sleep Stop: 10/01/20 01:11 Vitamin D (Cholecalciferol 1,000 Units 25 Mcg Tab) 1,000 units PO DAILY [facility] Stop: 10/01/20 08:59 Last Admin: 09/05/20 08:15 Dose: 1,000 units Documented by: Warfarin Sodium (Warfarin Sod 5 Mg Tab) 5 mg PO DAILY@1600 [facility] Stop: 10/05/20 15:59 (1) Alcohol withdrawal syndrome Complication of substance-induced condition: uncomplicated Qualified Code(s): F10.230 - Alcohol dependence with withdrawal, uncomplicated
[2020-09-05] MEDS: FOLIC ACID 1 MG in SYRINGE 9.8 ML IV SCH (09:05)
[2020-09-05] MEDS: PREGABALIN 75 MG CAP PO SCH ×2 (09:05→21:06)
[2020-09-05] MEDS: THIAMINE HCL 100 MG in SYRINGE 9 ML IV SCH (09:05)
[2020-09-05] MEDS: DICLOFENAC SOD 1% GEL 100 GM TUBE EXT SCH ×2 (09:06→21:08)
[2020-09-05 09:11] LABS: BUN Creatinine Ratio 17.5 (10-20); Calcium 9.1 mg/dl (8.5-10.1); Creatinine Clr Calc Pharmacy 196.3 ml/min; Est GFR (African American) 135.1; Est GFR (Non-African American) 116.6; Potassium 3.9 mmol/L (3.5-5.1)
[2020-09-05] MEDS: LORazepam 0.5 MG TAB PO PRN ×2 (16:45→22:34)
[2020-09-05] MEDS: WARFARIN SOD 5 MG TAB PO SCH (16:46)
[2020-09-05] MEDS ORDERED: WARFARIN SOD 1 MG TAB PO STA (19:37)
[2020-09-06 06:33] LABS: Hematocrit (blood only) 38.6 % (42-52); Hemoglobin 12.6 g/dL (14.0-18.0); Mean Corpuscular Hemoglobin 30.5 pg (25-34); Mean Corpuscular Hgb Conc 32.6 g/dL (32-36); Mean Corpuscular Volume 93.5 fL (80-100); RDW Coefficient of Variation 16.6 % (11.5-14.5); RDW Standard Deviation 57.3 fL (36.4-46.3); Red Blood Count 4.13 M/uL (4.7-6.1); White Blood Count 4.19 K/uL (4.8-10.8)
[2020-09-06 06:37] LABS: Mean Platelet Volume 11.2 fL (7.4-10.4); Platelet Count 90 K/uL (130-400)
[2020-09-06 06:39] LABS: INR 1.5 (0.9-1.1); Prothrombin Time 15.1 Seconds (9.0-12.0)
[2020-09-06 06:57] LABS: Albumin Level 2.8 gm/dl (3.4-5.0); BUN Creatinine Ratio 14.1 (10-20); Calcium 8.4 mg/dl (8.5-10.1); Creatinine Clr Calc Pharmacy 188.2 ml/min; Est GFR (African American) 132.6; Est GFR (Non-African American) 114.4; Magnesium 1.9 mg/dl (1.8-2.4); Potassium 3.7 mmol/L (3.5-5.1)
[2020-09-06 07:02] LABS: Albumin Globulin Ratio 0.7 (0.9-2); Bilirubin,Total 0.6 mg/dl (0.2-1); Globulin 3.8 gm/dl (2.5-4.0); Phosphorus 3.4 mg/dl (2.5-4.9); Total Protein 6.6 gm/dl (6.4-8.2)
[2020-09-06] MEDS: THIAMINE HCL 100 MG in SYRINGE 9 ML IV SCH (08:37)
[2020-09-06] MEDS: CITALOPRAM 20 MG TAB PO SCH (08:38)
[2020-09-06] MEDS: CYANOCOBALAMIN 500 MCG TABLET (VITAMIN B-12) PO SCH (08:38)
[2020-09-06] MEDS: FOLIC ACID 1 MG in SYRINGE 9.8 ML IV SCH (08:38)
[2020-09-06] MEDS: PREGABALIN 75 MG CAP PO SCH (08:38)
[2020-09-06] MEDS: carvediloL 3.125 MG TAB PO SCH (08:39)
[2020-09-06] MEDS: PANTOprazole 40 MG TAB PO SCH (08:39)
[2020-09-06] MEDS: CEROVITE ADV FORMULA TAB PO SCH (08:39)
[2020-09-06] MEDS: DICLOFENAC SOD 1% GEL 100 GM TUBE EXT SCH (08:40)
[2020-09-06] MEDS: CHOLECALCIFEROL 1,000 UNITS 25 MCG TAB PO SCH (08:40)
[2020-09-06] MEDS: RIFAXIMIN 550 MG TABLET PO SCH (08:40)
[2020-09-06] MEDS: INSULIN ASPART 100 UNITS/ML 3 ML PEN SC SCH ×3 (08:43→16:47)
[2020-09-06] MEDS: LORazepam 0.5 MG TAB PO PRN ×2 (08:49→15:03)
--- NOTE | 2020-09-06 08:50 | Hospitalist Progress Note ---
Date of Service September 06, 2020 Assessment & Plan (1) Alcohol withdrawal syndrome: Drinks about 10-20 beers a day and has been doing for a long time Was very anxious and stiff at presentation Wanted to have detox in a facility initially and I would like to go home and do outpatient therapy Has been on withdrawal protocol while inpt Has minimal tremors on outstretched hands, has been crying and anxious previously Clinically much better now, also determined to quit drinking for good, deter mined to follow-up with outpatient therapy History of unsteady gait associated with dysphasia and memory impairment Obtained MRI with and without contrast to rule out any intracranial pathology MRI did show 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 Unsteady gait is due in part due to cerebellar atrophy continue PT and OT while inpt (2) Thrombocytopenia: Secondary to alcoholism Pancytopenia due to alcoholism -Continue to monitor (3) Back pain: History of chronic back pain Continue home medications (4) Diabetes type 2, controlled: Globin A1c is 5.3 (5) MTHFR mutation: History of MTHFR mutation and has been on Coumadin Prior history of DVT and pulmonary embolism INR remains subtherapeutic Will give increased dose of Coumadin today and monitor INR-therapeutic Continue higher dose of Coumadin Needs outpatient follow-up to monitor INR (6) History of deep venous thrombosis or pulmonary embolus: (7) Hypertension: Blood pressure seems to be controlled (8) Hyperlipidemia: (9) Adjustment disorder with anxious mood: Continue current antidepressant Has been on Celexa To be more depressed and has been crying Psychiatry consulted, no changes recommended at this time, patient should follow-up as outpatient DVT prophylaxis On Coumadin INR remains subtherapeutic Increase Coumadin to 5 mg-go slow on INR because of thrombocytopenia CODE STATUS Full PT and OT evaluation Plan for inpatient alcohol rehab program initially however patient now determined to follow-up with outpatient therapy Admission and Anticipated Discharge Date Admission Date: September 01, 2020 Subjective Patient is lying bed, in no acute distress, denies any fevers, chills, chest pain, shortness of breath, tremors. Pt discussed with his and feels that he is safe to be home and do his outpatient therapy instead of inpatient therapy. We have a follow up appointment for the patient scheduled for tomorrow. Review of Systems Review of Systems: All systems reviewed & are unremarkable except as noted in HPI & below Constitutional: no fever and no chills Respiratory: no cough and no dyspnea Cardiovascular: no chest pain and no palpitations Gastrointestinal: no abdominal pain, no nausea and no vomiting Neurologic: no tremor(s) and no confusion Physical Exam Physical Exam: Physical Exam: Middle-aged male, laying in bed, in NAD Constitutional: well developed, well nourished, + obese, in no acute distress Eyes: PERRL, EOMI, conjunctivae normal, anicteric sclerae ENMT: external ear and nose normal, oropharynx normal Neck: trachea midline, no thyromegaly Respiratory: normal respiratory effort; no respiratory distress Auscultation: lungs clear to auscultation bilaterally Cardiovascular: Rate/Rhythm: regular rate and regular rhythm Heart Sounds: no murmur Extremities: + mild edema Gastrointestinal (Abdomen): Inspection/Auscultation: abdomen normal to inspection; abdomen not distended Percussion/Palpation: abdomen soft Musculoskeletal: No acute arthritis in any joint Neurologic: moves all extremities; no focal motor deficits Speech / Cognition: normal speech Unsteady gait and generalized weakness Psychiatric: A+Ox3, euthymic affect Orientation: alert and oriented x 3 Skin: Warm, dry, well-perfused Results & Data Results & Data ([facility]) Vital Signs (Past 12 Hours) Vital Signs Temp Pulse Pulse Resp BP Pulse Ox 09/06/20 03:22 36.8 C 76 18 125/83 96 09/05/20 23:14 69 09/05/20 23:05 36.8 C 67 16 155/95 H 97 Laboratory Results 09/06/20 09/06/20 09/06/20 Range/Units 06:00 06:00 06:00 WBC 4.19 L (4.8-10.8) K/uL RBC 4.13 L (4.7-6.1) M/uL Hgb 12.6 L (14.0-18.0) g/dL Hct 38.6 L (42-52) % MCV 93.5 (80-100) fL MCH 30.5 (25-34) pg MCHC 32.6 (32-36) g/dL RDW Std Deviation 57.3 H (36.4-46.3) fL RDW Coeff of Pk 16.6 H (11.5-14.5) % Plt Count 90 L (130-400) K/uL MPV 11.2 H (7.4-10.4) fL PT 15.1 H (9.0-12.0) Seconds INR 1.5 H (0.9-1.1) Sodium 139 (136-145) mmol/L Potassium 3.7 (3.5-5.1) mmol/L Chloride 109 H (98-107) mmol/L Carbon Dioxide 26 (21-32) mmol/L Anion Gap 4.0 (3-11) BUN 10 (7-18) mg/dl Creatinine 0.67 (0.6-1.4) mg/dl Est Cr Clr Drug Dosing 188.2 ml/min Est GFR ( Amer) 132.6 Est GFR (Non-Af Amer) 114.4 BUN/Creatinine Ratio 14.1 (10-20) Glucose 177 H (70-99) mg/dl POC Glucose (70-99) mg/dl Calcium 8.4 L (8.5-10.1) mg/dl Phosphorus 3.4 (2.5-4.9) mg/dl Magnesium 1.9 (1.8-2.4) mg/dl Total Bilirubin 0.6 (0.2-1) mg/dl AST 34 (15-37) U/L ALT 29 (12-78) U/L Alkaline Phosphatase 96 (45-117) U/L Total Protein 6.6 (6.4-8.2) gm/dl Albumin 2.8 L (3.4-5.0) gm/dl Globulin 3.8 (2.5-4.0) gm/dl Albumin/Globulin Ratio 0.7 L (0.9-2) 09/05/20 09/05/20 09/05/20 Range/Units 20:34 16:03 11:34 WBC (4.8-10.8) K/uL RBC (4.7-6.1) M/uL Hgb (14.0-18.0) g/dL Hct (42-52) % MCV (80-100) fL MCH (25-34) pg MCHC (32-36) g/dL RDW Std Deviation (36.4-46.3) fL RDW Coeff of Pk (11.5-14.5) % Plt Count (130-400) K/uL MPV (7.4-10.4) fL PT (9.0-12.0) Seconds INR (0.9-1.1) Sodium (136-145) mmol/L Potassium (3.5-5.1) mmol/L Chloride (98-107) mmol/L Carbon Dioxide (21-32) mmol/L Anion Gap (3-11) BUN (7-18) mg/dl Creatinine (0.6-1.4) mg/dl Est Cr Clr Drug Dosing ml/min Est GFR ( Amer) Est GFR (Non-Af Amer) BUN/Creatinine Ratio (-20) Glucose (70-99) mg/dl POC Glucose 114 H 136 H 116 H (70-99) mg/dl Calcium (8.5-10.1) mg/dl Phosphorus (2.5-4.9) mg/dl Magnesium (1.8-2.4) mg/dl Total Bilirubin (0.2-1) mg/dl AST (15-37) U/L ALT (12-78) U/L Alkaline Phosphatase (45-117) U/L Total Protein (6.4-8.2) gm/dl Albumin (3.4-5.0) gm/dl Globulin (2.5-4.0) gm/dl Albumin/Globulin Ratio (0.9-2) 09/05/20 09/05/20 Range/Units 08:01 08:01 WBC (4.8-10.8) K/uL RBC (4.7-6.1) M/uL Hgb (14.0-18.0) g/dL Hct (42-52) % MCV (80-100) fL MCH (25-34) pg MCHC (32-36) g/dL RDW Std Deviation (36.4-46.3) fL RDW Coeff of Pk (11.5-14.5) % Plt Count (130-400) K/uL MPV (7.4-10.4) fL PT 14.0 H (9.0-12.0) Seconds INR 1.3 H (0.9-1.1) Sodium 141 (136-145) mmol/L Potassium 3.9 (3.5-5.1) mmol/L Chloride 109 H (98-107) mmol/L Carbon Dioxide 26 (21-32) mmol/L Anion Gap 7.0 (3-11) BUN 11 (7-18) mg/dl Creatinine 0.64 (0.6-1.4) mg/dl Est Cr Clr Drug Dosing 196.3 ml/min Est GFR ( Amer) 135.1 Est GFR (Non-Af Amer) 116.6 BUN/Creatinine Ratio 17.5 (10-20) Glucose 88 (70-99) mg/dl POC Glucose (70-99) mg/dl Calcium 9.1 (8.5-10.1) mg/dl Phosphorus (2.5-4.9) mg/dl Magnesium (1.8-2.4) mg/dl Total Bilirubin (0.2-1) mg/dl AST (15-37) U/L ALT (12-78) U/L Alkaline Phosphatase (45-117) U/L Total Protein (6.4-8.2) gm/dl Albumin (3.4-5.0) gm/dl Globulin (2.5-4.0) gm/dl Albumin/Globulin Ratio (0.9-2) Medications Administered Current Inpatient Medications Carvedilol (Carvedilol 3.125 Mg Tab) 3.125 mg PO BID [facility] Stop: 10/01/20 01:11 Last Admin: 09/06/20 08:39 Dose: 3.125 mg Documented by: Citalopram Hydrobromide (Citalopram 20 Mg Tab) 20 mg PO DAILY [facility] Stop: 10/01/20 08:59 Last Admin: 09/06/20 08:38 Dose: 20 mg Documented by: Clonidine HCl (Clonidine Hcl 0.1 Mg Tab) 0.1 mg PO Q4H PRN PRN Reason: Hypertension Stop: 10/01/20 01:11 Cyanocobalamin (Cyanocobalamin 500 Mcg Tablet (Vitamin B-12)) 1,000 mcg PO DAILY [facility] Stop: 10/01/20 08:59 Last Admin: 09/06/20 08:38 Dose: 1,000 mcg Documented by: Dextrose (Dextrose 50% 50 Ml Syringe) 25 - 50 ml IV UD PRN; Protocol PRN Reason: Hypoglycemia Protocol Stop: 10/01/20 01:29 Diclofenac Sodium (Diclofenac Sod 1% Gel 100 Gm Tube) 2 gm EXT BID [facility] Stop: 10/01/20 20:59 Last Admin: 09/06/20 08:40 Dose: Not Given Documented by: Glucagon (Glucagon For Inj 1 Mg Vial) 1 mg SQ UD PRN; Protocol PRN Reason: Hypoglycemia Protocol Stop: 10/01/20 01:29 Glucose (Glucose 40% Gel 15 Gm Tube) 15 - 30 gm PO UD PRN; Protocol PRN Reason: Hypoglycemia Protocol Stop: 10/01/20 01:29 Glucose (Glucose 10 Tabs/Tube) 4 - 8 tabs PO UD PRN; Protocol PRN Reason: Hypoglycemia Protocol Stop: 10/01/20 01:29 Hydroxyzine HCl (Hydroxyzine Hcl 10 Mg Tab) 10 mg PO DAILY PRN PRN Reason: Anxiety Stop: 10/01/20 01:11 Last Admin: 09/05/20 08:15 Dose: 10 mg Documented by: Folic Acid 1 mg/ Syringe 10 mls @ 5 mls/min IV QAM [facility] Stop: 10/01/20 01:11 Last Admin: 09/06/20 08:38 Dose: 5 mls/min Documented by: Thiamine HCl 100 mg/ Syringe 10 mls @ 2 [facility] [place]: 10/01/20 01:11 Last Admin: 09/06/20 08:37 Dose: 2 mls/min Documented by: Lorazepam (Ativan) 1 mg in 2 mls @ 2 mls/min IV UD PRN; Protocol PRN Reason: EtOH Withdrawl AWSS Score 6,7 Stop: 10/01/20 01:11 Last Admin: 09/04/20 20:21 Dose: 2 mls/min Documented by: Lorazepam (Ativan) 2 mg in 4 mls @ 4 mls/min IV UD PRN; Protocol PRN Reason: EtOH Withdrawl AWSS Score 8,9 Stop: 10/01/20 01:11 Last Admin: 09/04/20 15:37 Dose: 4 mls/min Documented by: Lorazepam (Ativan) 3 mg in 6 mls @ 4 mls/min IV ONCE PRN; Protocol PRN Reason: EtOH Withdrawl AWSS Score >=10 Stop: 10/01/20 01:11 Insulin Aspart (Insulin Aspart 100 Units/Ml 3 Ml Pen) [facility] Stop: 10/01/20 07:29 Last Admin: 09/06/20 08:43 Dose: 4 units Documented by: Lorazepam (Lorazepam 0.5 Mg Tab) 0.5 mg PO Q6H PRN PRN Reason: Anxiety Stop: 10/05/20 15:44 Last Admin: 09/06/20 08:49 Dose: 0.5 mg Documented by: Miscellaneous (Carbohydrates For Hypoglycemia ) 15 - 30 gm PO UD PRN PRN Reason: Hypoglycemia Treatment Stop: 10/01/20 01:29 Multivitamins/Minerals (Cerovite Adv Formula Tab) 1 tab PO QAM [facility] Stop: 10/01/20 08:59 Last Admin: 09/06/20 08:39 Dose: 1 tab Documented by: Nitroglycerin (Nitroglycerin Sl 0.4 Mg/Tab Tab) 0.4 mg SL UD PRN PRN Reason: Chest Pain Stop: 10/01/20 01:11 Ondansetron HCl (Ondansetron Inj 2 Mg/Ml 2 Ml Vial) 4 mg IV Q6H PRN PRN Reason: Nausea Stop: 10/01/20 01:11 Last Admin: 09/05/20 09:05 Dose: 4 mg Documented by: Pantoprazole Sodium (Pantoprazole 40 Mg Tab) 40 mg PO DAILY [facility] Stop: 10/01/20 08:59 Last Admin: 09/06/20 08:39 Dose: 40 mg Documented by: Pregabalin (Pregabalin 75 Mg Cap) 75 mg PO BID [facility] Stop: 10/01/20 08:59 Last Admin: 09/06/20 08:38 Dose: 75 mg Documented by: Rifaximin (Rifaximin 550 Mg Tablet) 550 mg PO BID [facility] Stop: 10/01/20 08:59 Last Admin: 09/06/20 08:40 Dose: 550 mg Documented by: Trazodone HCl (Trazodone Hcl 50 Mg Tab) 50 mg PO HS PRN PRN Reason: Sleep Stop: 10/01/20 01:11 Vitamin D (Cholecalciferol 1,000 Units 25 Mcg Tab) 1,000 units PO DAILY [facility] Stop: 10/01/20 08:59 Last Admin: 09/06/20 08:40 Dose: 1,000 units Documented by: Warfarin Sodium (Warfarin Sod 5 Mg Tab) 5 mg PO DAILY@1600 [facility] Stop: 10/05/20 15:59 Last Admin: 09/05/20 16:46 Dose: 5 mg Documented by: (1) Alcohol withdrawal syndrome Complication of substance-induced condition: uncomplicated Qualified Code(s): F10.230 - Alcohol dependence with withdrawal, uncomplicated
[2020-09-06] MEDS: WARFARIN SOD 5 MG TAB PO SCH (15:03)
--- NOTE | 2020-09-06 16:24 | Discharge Summary ---
Date of Service September 06, 2020 Admission HPI Per Admitting Provider This is a 49-year-old male with past medical history significant for type 2 diabetes, diabetic neuropathy, homozygous MTHFR mutation, history of DVT and pulmonary embolism, on Coumadin, status post IVC filter, hyperlipidemia, hypertension, portal hypertensive gastropathy, GERD, disk disorder of lumbar region, avascular necrosis of the left femoral head, degenerative disc disease, adjustment disorder with anxious mood, wants to get admitted for alcohol detox and possible rehab placement. The patient is also having ambulatory dysfunction. He just saw neurologist and supposed to get MRI scans on of this month. The patient says he is drinking about 10-20 beers everyday for a long time, he also smokes once in a while marijuana. Denies any tobacco abuse or any other drug abuse. Lives with his . Denies any other complaints. Currently resting comfortably and hemodynamically stable, last drink was 10 hours ago and feeling somewhat anxious and stiff. He has chronic sinusitis, sinus pain in the frontal region and nasal region. Plan to see ENT. Currently, no headache, no blurred visions. Ears feels blocked for a long time. No cough, no loss of sense of smell or taste. No dysphagia, no fever, chills. No nausea, vomiting. No chest pain or shortness of breath. No abdominal pain. Normal bowel and bladder movements. No hematuria or burning micturition, no blood in the stools or black stools. No rash. He recently fell and had some bruises on the back. Admission Exam Per Admitting Provider GENERAL: The patient is of moderate build, not in acute distress. VITAL SIGNS: Temperature 36.8, pulse 58, respiratory rate 24, blood pressure 134/79, oxygen 96% on room air. HEENT: No pallor, no icterus. Pupils equal, round, reactive to light. NECK: No JVD, no neck masses, no carotid bruits. CARDIOVASCULAR: S1, S2 heard, regular rate and rhythm, no murmur, no gallop. RESPIRATORY SYSTEM: Normal AP diameter. No accessory muscle use. No wheezing, no crackles. ABDOMEN: Soft, bowel sounds present, nontender. No distention. CENTRAL NERVOUS SYSTEM: Cranial nerves II-XII grossly intact. Nonfocal. EXTREMITIES: No edema, no erythema. Principal Diagnosis Alcohol abuse, alcohol withdrawal Subtherapeutic INR Discharge Exam Physical Exam: Middle-aged male, laying in bed, in NAD Constitutional: well developed, well nourished, + obese, in no acute distress Eyes: PERRL, EOMI, conjunctivae normal, anicteric sclerae ENMT: external ear and nose normal, oropharynx normal Neck: trachea midline, no thyromegaly Respiratory: normal respiratory effort; no respiratory distress Auscultation: lungs clear to auscultation bilaterally Cardiovascular: Rate/Rhythm: regular rate and regular rhythm Heart Sounds: no murmur Extremities: + mild edema Gastrointestinal (Abdomen): Inspection/Auscultation: abdomen normal to inspection; abdomen not distended Percussion/Palpation: abdomen soft Musculoskeletal: No acute arthritis in any joint Neurologic: moves all extremities; no focal motor deficits Speech / Cognition: normal speech Unsteady gait and generalized weakness Psychiatric: A+Ox3, euthymic affect Orientation: alert and oriented x 3 Skin: Warm, dry, well-perfused Discharge Data Allergies Allergy/AdvReac Type Severity Reaction Status Date / Time No Known Allergies Allergy Unverified 08/31/20 22:29 Consultations 08/31/20 21:54 ED Decision to Admit Stat 09/01/20 01:12 Consult Case Management - Discharge Planning Routine 09/01/20 14:32 Consult Case Management - Discharge Planning Routine 09/02/20 13:20 Consult Psychiatry Routine Ordered Studies 08/31/20 19:00 CT head/brain wo con Stat FINDINGS: No intra or extra-axial mass lesions are visualized. There is no CT evidence of acute cortical infarction. There is no evidence of midline shift. There is no acute hemorrhage. No calvarial fractures are visualized. There is mild cerebellar atrophy. There is no evidence of pathologic ventricular dilatation. There is no acute sinusitis. There is minor right maxillary sinus mucosal thickening. IMPRESSION: No acute intracranial findings 08/31/20 19:02 CT abd pelvis wo con Stat IMPRESSION: 1. No acute intra-abdominal or pelvic findings 2. No evidence of bowel obstruction. No evidence of free air 3. No evidence of acute appendicitis. No evidence of acute diverticulitis 4. Suspected cirrhotic liver morphology. Mild splenomegaly. 09/03/20 13:22 MR brain wo/w con Routine IMPRESSION: 1. No acute intracranial findings 2. No evidence of acute or subacute infarction 3. No evidence of intracranial mass 4. Cerebellar vermis atrophy. Hospital Course (1) Alcohol withdrawal syndrome: Drinks about 10-20 beers a day and has been doing for a long time Was very anxious and stiff at presentation Wanted to have detox in a facility initially but now would like to go home and do outpatient therapy Has been on withdrawal protocol while inpt Has minimal tremors on outstretched hands, has been crying and anxious previously Clinically much better now, also determined to quit drinking for good, determined to follow-up with outpatient therapy Continue thiamine and folic acid as outpatient Follow-up with PCP arranged for tomorrow September 07 History of unsteady gait associated with dysphasia and memory impairment Obtained MRI with and without contrast to rule out any intracranial pathology MRI did show 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 Unsteady gait is due in part due to cerebellar atrophy continued PT and OT while inpt (2) Thrombocytopenia: Secondary to alcoholism Pancytopenia due to alcoholism -Continue to monitor (3) Back pain: History of chronic back pain Continue home medications (4) Diabetes type 2, controlled: Globin A1c is 5.3 (5) MTHFR mutation: History of MTHFR mutation and has been on Coumadin Prior history of DVT and pulmonary embolism INR remains subtherapeutic Will give increased dose of Coumadin today and monitor INR-therapeutic Continue higher dose of Coumadin, 5 mg daily Needs outpatient follow-up to monitor INR (6) History of deep venous thrombosis or pulmonary embolus: (7) Hypertension: Blood pressure seems to be controlled (8) Hyperlipidemia: (9) Adjustment disorder with anxious mood: Continue current antidepressant Has been on Celexa To be more depressed and has been crying Psychiatry consulted, no changes recommended at this time, patient should follow-up as outpatient INR remains subtherapeutic Increase Coumadin to 5 mg-go slow on INR because of thrombocytopenia Disposition: Plan for inpatient alcohol rehab program initially however patient now determined to follow-up with outpatient therapy Follow up with PCP arranged for tomorrow September 07 Total Time Total Time Spent Total Time Spent (In Minutes): 40 Total Time Includes: Examination of the Patient, Discharge Planning and Medication Reconciliation Discharge Plan Discharge Items Patient Disposition: Home - Self-Care Reason For Visit: ALCOHOL WITHDRAWL Discharge Diagnosis: Alcohol abuse, alcohol withdrawal Subtherapeutic INR Activity: Per Instructions section Non-emergency contact: Primary Care Provider Call non-emergency contact if: you have any medication questions and your symptoms worsen Follow-up/Referrals: Izzy Delgadillo MD [Primary Care Provider] - (Date & Time 09/07/2020 2:20 PM Provider Javier Padilla MD Department Internal Medicine [facility] ) Diet: Regular Addtl Attending Provider Instructions: Follow-up with primary care doctor tomorrow, September 07, the appointment was scheduled for you. Complete abstinence from alcohol is strongly recommended. Follow-up with his outpatient therapy. Recommend to continue to take thiamine and folic acid daily. Your INR has been low, you will need to follow-up and check your INR as soon as possible, your warfarin dose was adjusted as well -increased to 5 mg daily. Take 5 mg of warfarin daily until you discuss this further with your primary care doctor and/ or anticoagulation clinic. Please bring this paperwork to your appointment tomorrow with your primary care doctor. Pending Studies at Discharge: No Stand-Alone Forms: [employer], Smoking Cessation, Suicide P revention Resources Medications and DC Order Prescriptions: New warfarin 5 mg Tablet 5 mg PO DAILY@1600 5 Days RF: 0 warfarin 5 mg tablet 5 mg PO DAILY Qty: 7 RF: 0 Continued trazodone 50 mg tablet 50 mg PO HS PRN (Reason: Sleep) RF: 0 cyanocobalamin (vitamin B-12) [Vitamin B-12] 1,000 mcg Tablet 0 mcg PO DAILY RF: 0 carvedilol [Coreg] 3.125 mg tablet 3.125 mg PO BID RF: 0 citalopram 20 mg tablet 20 mg PO DAILY RF: 0 chlordiazepoxide HCl 25 mg capsule 25 mg PO Q4 PRN (Reason: Anxiety) RF: 0 pantoprazole 40 mg Tablet,Delayed Release (Dr/Ec) 40 mg PO DAILY RF: 0 metformin 1,000 mg tablet 1,000 mg PO BID RF: 0 acyclovir 200 mg Capsule 200 mg PO UD RF: 0 hydroxyzine HCl 10 mg tablet 10 mg PO DAILY PRN (Reason: Anxiety) RF: 0 pregabalin 75 mg capsule 75 mg PO BID RF: 0 cholecalciferol (vitamin D3) [Vitamin D3] 125 mcg (5,000 unit) Tablet 125 mcg PO DAILY RF: 0 Xifaxan 550 mg tablet 550 mg PO BID RF: 0 folic acid 1 mg tablet 1 mg PO DAILY 30 Days Qty: 30 RF: 0 thiamine HCl (vitamin B1) [Vitamin B-1] 100 mg Tablet 100 mg PO DAILY 30 Days Qty: 30 RF: 0 Discontinued warfarin 2 mg tablet 2 mg PO DAILY RF: 0 Discharge Orders: Discharge Order (Routine); Ordered 09/06/20 Ordered By: Alexandr Patricio/Other Patient Handouts: High Blood Sugar (Hyperglycemia), Hypoglycemia (Low Blood Sugar), Managing Type 2 Diabetes, Diabetes: Meal Planning Admission Data Admit Date/Time: 09/01/20 00:29 Attending Provider: Alexandr Lacey Admit Provider: Dilan Monk Primary Care Provider: Izzy Delgadillo Other Providers: Dilan Monk ; Alka Garcia ; Frankie Vera
== END 2020-09-06 17:58 | disposition home or self-care (01) | DRG 896 ==
LOC: ED 18:32 → 2S 09-01 00:29 → SUATTDRO 09-01 00:29 → 2S 09-01 00:52